=== PATIENT | female | born 1990 | race Caucasian/White ===

== ENCOUNTER 2023-10-13 16:14 | Outpatient (CLI) | payer BC, SELFPAY ==
--- NOTE | 2023-10-13 16:00 | CRLHL7_ITS ---
For Patients: As a result of the Century Cures Act, medical imaging exams and procedure reports are released immediately into your electronic medical record. You may view this report before your referring provider. If you have questions, please contact your health care provider. INDICATION: First trimester scan, establish dates. COMPARISON: None. TECHNIQUE: Real-time javier-scale imaging of the pelvis was performed. FINDINGS: Sonographic imaging demonstrates a single living intrauterine gestation. The embryo demonstrates a regular cardiac rate measuring 176 beats per minute. The embryo`s crown-rump length measurement of 2.6 cm corresponds to a gestational age of 9 weeks 3 days with a sonographic due date of 05/14/2024. There is a normal-appearing yolk sac. There are no gross abnormalities noted within the embryo at this early state of development. The gestational sac has a normal appearance. There is a 2.4 x 1.5 x 2.5 cm perigestational hemorrhage. The amount of fluid within the sac appears appropriate for gestational age. The cervix is closed. The myometrium appears normal. The ovaries are of normal size. Corpus luteal cyst right ovary. There are no suspicious fluid collections noted in the cul-de-sac. IMPRESSION: Single living intrauterine with sonographic gestational age 9 weeks 3 days and sonographic due date 05/14/2024. Inferior subchorionic hemorrhage measuring 2.4 x 1.5 x 2.5 cm. Dictated by Radhames Thapa MD @ 10/14/2023 10:17:12 AM (Electronically Signed)
== END 2023-10-13 16:15 | disposition home or self-care (01) ==
LOC: US 16:15
PROVIDERS: PCP Family Medicine; Visit Provider Registered Nurse
DX: Z34.91 Encounter for supervision of normal pregnancy, unspecified, first trimester (principal); O20.9 Hemorrhage in early pregnancy, unspecified; Z3A.09 9 weeks gestation of pregnancy
CPT/HCPCS: 76817; 86703; 86706; 86803; 86850; 86900; 86901; 87086; 87340; 87491; 87591

== ENCOUNTER 2023-10-13 17:34 | Outpatient (CLI) | payer BC, SELFPAY ==
[2023-10-13 21:45] LABS: Chlamydia DNA Amplified* NOT DETECTED (No Detected); GC DNA Amplified* NOT DETECTED (No Detected)
== END 2023-10-13 17:35 | disposition home or self-care (01) ==
PROVIDERS: PCP Family Medicine; Visit Provider Registered Nurse
DX: Z34.91 Encounter for supervision of normal pregnancy, unspecified, first trimester (principal); Z3A.09 9 weeks gestation of pregnancy
CPT/HCPCS: 86592; 86703; 86704; 86706; 86762; 86787; 86803; 86850; 86900; 86901; 87086; 87340; 87491; 87591

== ENCOUNTER 2024-01-06 13:56 | Outpatient (CLI) | payer BC, SELFPAY ==
--- OUTSIDE RECORDS SUMMARY | 2024-01-06 13:59 | XMS_ITS | Clinical Summary ---
Author Name Unknown Organization [place] Address [facility] [place] [address] Care Team Providers Care Apparel Pattern Maker Name Role Phone Clinic, [facility] [place] [facility] Pro vider Allergies No known active allergies Medications Medication Sig Dispensed Refills Start Date End Date Status Vit-Fe Fumarate-FA (PNV PLUS MULTIVITAMIN) 27-1 MG TABS per tablet Take 1 tablet by mouth daily 0 Active Active Problems Problem Noted Date Diagnosed Date (spontaneous vaginal delivery) 11/21/2019 Labor and delivery, indication for care 11/20/20 19 Indication for care in labor or delivery 019 Social History Tobacco Use Types Packs/Day Years Used Date Smoking Tobacco: Never Smokeless Tobacco: Never Alcohol Use Standard Drinks/Week Comments Never 0 (1 standard drink = 0.6 oz pur e alcohol) AUDIT-C Answer Date Recorded Q1: How often do you have a drink containing alc ohol? Never 11/20/2019 Average Number of Drinks Not on file 019 Frequency of Binge Drinking Not on file 10/31 [place] Depression Scale Answer Date Recorded [place] Depression Score 0 11/21/2019 Last EPDS Self Harm Result Not on file 11/21 Adolescent Education Answer Date Record ed Getting School Help Needed Not on file 09/06 Sex and Gender Information Value Date Recorded Sex Assigned at Not on file Gender Identity Not on file Sexual Orientation Not on file Last Filed Vital Signs Vital Sign Reading Time Taken Comments Blood Pressure 105/64 11/22/2019 9:00 AM DEALERSHIP GENERAL MANAGER Pulse - - Temperature 36.4 ??C (97.5 ??F) 11/22/2019 9:00 AM CS T Respiratory Rate 16 11/22/2019 9:00 AM DEALERSHIP GENERAL MANAGER Oxygen Saturation 97% 11/20/2019 8:45 PM DEALERSHIP GENERAL MANAGER Inhaled Oxygen Concentration - - Weight 104.3 kg (230 lb) 11/20/2019 9:33 AM DEALERSHIP GENERAL MANAGER Height 170.2 cm (5' 7) 11/20/2019 9:33 AM DEALERSHIP GENERAL MANAGER Body Mass Index 36.02 11/20/2019 9:33 AM DEALERSHIP GENERAL MANAGER Plan of Treatment Health Maintenance Due Date Last Done Comments ADVANCE CARE PLANNING 1989 ANNUAL REVIEW OF HM ORDERS 1989 HEPATITIS B IMMUNIZATION (1 of 3 - 3-dose series) 1989 YEARLY PREVENTIVE VISIT 1989 COVID-19 Vaccine (#1) 04/25/1990 HEPATITIS C SCREENING 2007 PAP 2010 DTAP/TDAP/TD IMMUNIZATION (1 - Tdap) 2014 INFLUENZA VACCINE (#1) 2023 PHQ-2 (once per calendar year) 2023 HIV SCREENING Completed 04/12/2019 HPV IMMUNIZATION Aged Out No longer e ligible based on patient's age to complete this topic IPV IMMUNIZATION Aged Out No longer e ligible based on patient's age to complete this topic MENINGITIS IMMUNIZATION Aged Out No l onger eligible based on patient's age to complete this topic Pneumococcal Vaccine: Pediat rics (0 to 5 Years) and At-Risk Patients (6 to 64 Years) Aged Out No longer eligi ble based on patient's age to complete this topic RSV MONOCLONAL ANTIBODY Aged Out No l onger eligible based on patient's age to complete this topic Care Teams Apparel Pattern Maker Relationship Specialty Start Date End Date Clinic, [facility] [id number] [place] [address] PCP - General 11/22/19
--- OUTSIDE RECORDS SUMMARY | 2024-01-06 13:59 | XMS_ITS | Encounter Summary ---
Author Name Unknown Organization [facility] Address [address], [place] [address] Care Team Providers Care Quality Assurance Intern Name Role Phone Riri Hand PA-C Primary Care Provider [phone] Encounter Details Date Type Department Care Team Description 03/03/2017 Correspondence [facility] [address] [place] [address] [address] [place] [address] Nicolas Jefferson MD [address] [place], [place] [id number] OCC MED TB SCREENING TOOL Social History Tobacco Use Types Packs/Day Years Used Date Smoking Tobacco: Never Smokeless Tobacco: Never Comments:non smoking environ ment Alcohol Use Standard Drinks/Week Comments Yes 0 (1 standard drink = 0.6 oz pur e alcohol) 2 to 3 drinks/week Sex and Gender Information Value Date Recorded Sex Assigned at Not on file Gender Identity Not on file Sexual Orientation Not on file documented as of this encounter Plan of Treatment Not on file documented as of this encounter Visit Diagnoses Not on filedocumented in this encounter Care Teams Quality Assurance Intern Relationship Specialty Start Date End Date Riri Hand PA-C [address] [place] [address] PCP - General Physician Weigh And Charge Worker 10/12/17 documented as of this encounter
--- OUTSIDE RECORDS SUMMARY | 2024-01-06 13:59 | XMS_ITS | Encounter Summary ---
Author Name Unknown Organization [facility] Address [address] [place] [address] Care Team Providers Care Radar Operator Name Role Phone Riri Hand PA-C Primary Care Provider [phone] Encounter Details Date Type Department Care Team Description 02/26/2017 Correspondence External to External, [place] [address] [facility] CNRT PPD [place] TEST Social History Tobacco Use Types Packs/Day Years [...] on filedocumented in this encounter Care Teams Radar Operator Relationship Specialty Start Date End Date Riri Hand PA-C [address] [place] [address] PCP - General Physician Gasoline Tester 10/12/17 documented as of this encounter
--- OUTSIDE RECORDS SUMMARY | 2024-01-06 13:59 | XMS_ITS | Encounter Summary ---
Author Name Unknown Organization [facility] Address [address], [place] [address] Care Team Providers Care House Wirer Name Role Phone Riri Hand PA-C Primary Care Provider + [phone] Encounter Details Date Type Department Care Team Description 03/03/2017 Correspondence [place] [facility] [place] [address] Nicolas Jefferson MD [address] [place] [address] SPIROMETRY PRE SCREEN QUESTIONNAIRE Social History Tobacco Use Types Packs/Day Years [...] on filedocumented in this encounter Care Teams House Wirer Relationship Specialty Start Date End Date Riri Hand PA-C [address] [place] [address] PCP - General Physician Executive Vice President And Chief Financial Officer 10/12/17 documented as of this encounter
--- OUTSIDE RECORDS SUMMARY | 2024-01-06 13:59 | XMS_ITS | Encounter Summary ---
Author Name Unknown Organization [facility] Address [address] [address] Care Team Providers Care Occasional Caregiver Name Role Phone Riri Hand PA-C Primary Care Provider [phone] Encounter Details Date Type Department Care Team Description 03/03/2017 Correspondence [place] [facility] [place] [address] Nicolas Jefferson MD [address] [place], [place] [id number] [place] DOC PRE PLACEMENT QUESTIONNAIRE Social History Tobacco Use Types Packs/Day [...] on filedocumented in this encounter Care Teams Occasional Caregiver Relationship Specialty Start Date End Date Riri Hand PA-C [address] [place] [address] PCP - General Physician Executive Producer Promos 10/12/17 documented as of this encounter
--- OUTSIDE RECORDS SUMMARY | 2024-01-06 13:59 | XMS_ITS | Encounter Summary ---
Author Name Unknown Organization [facility] Address [address], [place] [address] Care Team Providers Care Trestleman Name Role Phone Riri Hand PA-C Primary Care Provider + [phone] Encounter Details Date Type Department Care Team Description 03/03/2017 Correspondence [facility] [address] [place] [address] Nicolas Jefferson MD [address] [place], [place] [phone] [place] DEPT OF CORRECTIONS DRUG SCREEN RELEASE Social History Tobacco Use Types Packs/Day Years [...] on filedocumented in this encounter Care Teams Trestleman Relationship Specialty Start Date End Date Riri Hand PA-C [address] [place] [address] PCP - General Physician Bellmaker 10/12/17 documented as of this encounter
--- OUTSIDE RECORDS SUMMARY | 2024-01-06 13:59 | XMS_ITS | Referral Summary ---
Author Name Unknown Organization [place] Address [facility] [place] [address] Care Team Providers Care Manufacturing Shift Supervisor Name Role Phone Clinic, [facility] [place] [facility] Pro vider Allergies No known [...] of Binge Drinking Not on file 10/31 [place] Depression Scale Answer Date Recorded [place] Depression Score 0 11/21/2019 Last EPDS Self [...] Comments Blood Pressure 105/64 11/22/2019 9:00 AM CENTRIFUGAL STATION OPERATOR Pulse - - Temperature 36.4 ??C (97.5 ??F) 11/22/2019 9:00 AM CS T Respiratory Rate 16 11/22/2019 9:00 AM CENTRIFUGAL STATION OPERATOR Oxygen Saturation 97% 11/20/2019 8:45 PM CENTRIFUGAL STATION OPERATOR Inhaled Oxygen Concentration - - Weight 104.3 kg (230 lb) 11/20/2019 9:33 AM CENTRIFUGAL STATION OPERATOR Height 170.2 cm (5' 7) 11/20/2019 9:33 AM CENTRIFUGAL STATION OPERATOR Body Mass Index 36.02 11/20/2019 9:33 AM CENTRIFUGAL STATION OPERATOR Plan of Treatment Not on file Care Teams Manufacturing Shift Supervisor Relationship Specialty Start Date End Date Clinic, [facility] [address] [place] [address] PCP - General 11/22/19
--- OUTSIDE RECORDS SUMMARY | 2024-01-06 13:59 | XMS_ITS | Clinical Summary ---
Author Name Unknown Organization [facility] [place], [place] [address] Care Team Providers Care Soap Drier Tender Name Role Phone Pcp, No Primary Care Provider Unavailabl e Allergies No known active allergies Medications Medication Sig Dispensed Refills Start Date End Date Status ondansetron (ZOFRAN) 4 mg tablet Take 4 mg by mouth every 6 hours if needed. 0 04/08/2021 Active sertraline (ZOLOFT) 50 mg tablet Take 50 mg by mouth once daily. 0 03/28/2021 Active Active Problems Estimated Date of Delivery Comme nts Yes 08/24/2021 No known active problems Social History Tobacco Use Types Packs/Day Years Used Date Smoking Tobacco: Never Smokeless Tobacco: Never Estimated Date of Delivery Comme nts Yes 08/24/2021 Sex and Gender Information Value Date Recorded Sex Assigned at Not on file Gender Identity Not on file Sexual Orientation Not on file Obstetrics History Para Term AB IAB SAB Ectopic Multiple Livin g Live Births 1 Date Outcome GA Total Labor Labor/2nd/3rd Weight Sex Delivery Anes PTL Sweta A1 A5 Name Cl in Current Last Filed Vital Signs Vital Sign Reading Time Taken Comments Blood Pressure 122/61 07/11/2021 2:56 PM CDT Pulse 79 07/11/2021 2:56 PM CDT Temperature 36.7 ??C (98 ??F) 07/11/2021 2:56 PM CDT Respiratory Rate 14 07/11/2021 2:56 PM CDT Oxygen Saturation 98% 07/11/2021 2:56 PM CDT Inhaled Oxygen Concentration - - Weight - - Height - - Body Mass Index - - Plan of Treatment Health Maintenance Due Date Last Done Comments COVID-19 vaccine series (#1) 04/25/1990 Tdap 2000 Depression screening for age 12+ 2001 HIV for age 15-65 2004 BMI (ht and wt on same day) for age 18+ 2007 Hepatitis C screening for ag e 18-79 2007 Tetanus booster 2009 Influenza for age 9-49 07/31/2023 Pap test for age 21-65 01/22/2024 , 01/22/2021 Pneumococcal series for age 6-64 Aged Out No longer eligible b ased on patient's age to complete this topic Care Teams Soap Drier Tender Relationship Specialty Start Date End Date Pcp, No . PCP - General 07/11/21
--- OUTSIDE RECORDS SUMMARY | 2024-01-06 13:59 | XMS_ITS | Encounter Summary ---
Author Name Unknown Organization [facility] Address [address] [place] [address] Care Team Providers Care Rail Project Engineer Name Role Phone Riri Hand PA-C Primary Care Provider + [phone] Encounter Details Date Type Department Care Team Description 03/03/2017 Correspondence None No Primary/Referring, Phy INITIAL HEALTH AND WORK HISTORY QUESTIONNAIRE Social History Tobacco Use Types Packs/Day [...] on filedocumented in this encounter Care Teams Rail Project Engineer Relationship Specialty Start Date End Date Riri Hand PA-C [address] [place] [address] PCP - General Physician Police Chief Deputy 10/12/17 documented as of this encounter
--- OUTSIDE RECORDS SUMMARY | 2024-01-06 13:59 | XMS_ITS | Encounter Summary ---
Author Name Unknown Organization [facility] Address [address], [place] [address] Care Team Providers Care Hoop Punch And Coiler Operator Name Role Phone Riri Hand PA-C Primary Care Provider [phone] Encounter Details Date Type Department Care Team Description 03/03/2017 Correspondence [place] [facility] [place] [address] Nicolas Jefferson MD [address] [place], [place] [phone] [place] DOC PRE PLACEMENT QUESTIONNAIRE Social History Tobacco [...] on filedocumented in this encounter Care Teams Hoop Punch And Coiler Operator Relationship Specialty Start Date End Date Riri Hand PA-C [address] [place] [address] PCP - General Physician Building Components Designer 10/12/17 documented as of this encounter
--- OUTSIDE RECORDS SUMMARY | 2024-01-06 13:59 | XMS_ITS | Encounter Summary ---
Author Name Unknown Organization [facility] Address [address] [place] [address] Care Team Providers Care Patient Care Technician Instructor Name Role Phone Riri Hand PA-C Primary Care Provider + [phone] Encounter Details Date Type Department Care Team Description 03/03/2017 Correspondence None No Primary/Referring, Phy RESPIRATOR MEDICAL EVAL QUESTIONNAIRE Social History Tobacco Use Types Packs/Day [...] on filedocumented in this encounter Care Teams Patient Care Technician Instructor Relationship Specialty Start Date End Date Riri Hand PA-C [address] [place] [address] PCP - General Physician Fire Support Specialist 10/12/17 documented as of this encounter
--- OUTSIDE RECORDS SUMMARY | 2024-01-06 13:59 | XMS_ITS | Encounter Summary ---
Author Name Unknown Organization [facility] Address [address], [place] [address] Care Team Providers Care Latex Dipper Name Role Phone Riri Hand PA-C Primary Care Provider [phone] Encounter Details Date Type Department Care Team Description 03/03/2017 Correspondence [place] [facility] [place] [address] Nicolas Jefferson MD [address] [place] [address] [place] DOC RESPIRATOR CLEARANCE Social History Tobacco Use Types Packs/Day Years [...] on filedocumented in this encounter Care Teams Latex Dipper Relationship Specialty Start Date End Date Riri Hand PA-C [address] [place] [address] PCP - General Physician Printer Helper 10/12/17 documented as of this encounter
--- OUTSIDE RECORDS SUMMARY | 2024-01-06 13:59 | XMS_ITS | Clinical Summary ---
Author Name Unknown Organization [facility] Address [address] [facility] [place] [address] Care Team Providers Care Community Marketing Manager Name Role Phone Riri Hand PA-C Primary Care Provider + [phone] Source Comments You are receiving this document as you are listed as the primary care provider,follow-up provider, or the patient has been referred to you for consultation.This is in compliance with the Medicare and[facility] EHR Incentive Program,which states Providers who transition their patient to another setting of careor provider of care or refers their patient to another provider of care shouldprovide summary care record for each transition of care or referral. [facility] [employer] Allergies No known active allergies Medications Medication Sig Dispensed Refills Start Date End Date Status Vit-Fe Fumarate-FA (PNV PLUS MULTIVITAMIN) 27-1 MG TABS Take 1 Tablet by mouth. 0 Active Active Problems Problem Noted Date Diagnosed Date Class 1 obesity with body ma ss index (BMI) of 33.0 to 33.9 in adult 01/03/2020 Hx of head injury 10/19/2017 Other acne 11/19/2010 Overview: Acne Vulgaris Resolved Problems Problem Noted Date Diagnosed Date Resolved Date Rh negative, antepartum 04/15/2019 0202/2020 Obesity in 04/12/2019 020 Supervision of normal first , antepartum 04/12/2019 01/03/2020 Contraceptive management 11/20/2011 Closed skull fracture 07/17/20082016 Epidural hematoma 07/17/2008 10/19/2017 Immunizations Name Administration Dates Next Due 4vHPV (Gardasil) 12/02/2012,03/12/2012, 1 DTP 03/18/1995, 1,02/23/1990,1989 DTaP 03/18/1995, 1,02/23/1990,1989 Flu Vac (3+ yrs) 08/30/2014,12/02/2012, 1 Flu Vac Preserv Free (3+yrs) 11/20/2011 HepA Adult (19+ yrs) 10/25/2018,07/27/19 96,03/09/1996,1995 HepA Ped/Adol (1-18 yrs) 07/27/1996,03/09/1996,0 02/10/1996 HepB Ped/Adol (0-18 yrs) 11/10/2002,06/09/2002,0 05/12/2002 HepB, Unspecified Formulation 11/10/2002, 002,05/12/2002 Hib (ActHIB) 01/26/1991 IPV (Polio) 03/18/1995, 1,02/23/1990,1989 Influenza IIV4 (Quadrivalent ) 0.5mL (98530) 08/30/2019,10/19/2017,10/08/2015 MCV4 (Menactra) 07/21/2007 MMR 05/12/2002,01/26/1991 MPSV4 (Menomune) 07/21/2007 OPV, Trivalent (Orimune or tOPV) 995,06/27/1991,02/23/1990,1989 Rho(D) - IG, IM 08/30/2019 TDAP (ADACEL) 11/20/2011 Td 06/09/2002 Td, Preservative Free 06/09/2002 Tdap 08/30/2019 Family History Medical History Relation Name Comments Allergies Father No Known Problems Mother No Known Problems Maternal Grandmother Depression Paternal Grandfather Depression Paternal Grandmother Diabetes Paternal Grandmother High Cholesterol Paternal Grandmother Hypertension Paternal Grandmother Obesity Paternal Grandmother Anxiety Sister Cancer Negative Family History DVT/PE Negative Family History Heart Disease Negative Family History Relation Name Status Comments Father Alive Mother Alive Maternal Grandfather Alive Maternal Grandmother Alive Paternal Grandfather Alive Paternal Grandmother Alive Sister Alive Social History Tobacco Use Types Packs/Day Years Used Date Smoking Tobacco: Never Smokeless Tobacco: Never Comments:non smoking environ ment Alcohol Use Standard Drinks/Week Comments Not Currently 0 (1 standard drink = 0.6 oz pur e alcohol) 2 to 3 drinks/week Depression Answer Date Recor ded Last EPDS Total Score 7 06/16/2020 Last EPDS Self Harm Result 0-->never 06/16 Sex and Gender Information Value Date Recorded Sex Assigned at Not on file Gender Identity Not on file Sexual Orientation Not on file Last Filed Vital Signs Vital Sign Reading Time Taken Comments Blood Pressure 115/76 01/03/2020 2:06 PM DIRECTOR OF AUTOMATION Pulse 69 01/03/2020 2:06 PM DIRECTOR OF AUTOMATION Temperature 37.1 ??C (98.8 ??F) 05/03/2018 9:28 AM CD T Respiratory Rate 18 05/03/2018 9:28 AM CDT Oxygen Saturation 97% 05/03/2018 9:28 AM CDT Inhaled Oxygen Concentration - - Weight 97.1 kg (214 lb) 01/03/2020 2:06 PM DIRECTOR OF AUTOMATION Height 171.5 cm (5' 7.5) 01/03/2020 2:06 PM DIRECTOR OF AUTOMATION Body Mass Index 33.02 01/03/2020 2:06 PM DIRECTOR OF AUTOMATION Plan of Treatment Health Maintenance Due Date Last Done Comments Hep C Screening (Preventive Services) 1989 COVID-19 Vaccine (#1) 04/25/1990 Cervical Cancer Screening 10/19/20202016, 11/20/2011, 11/18/2010, Additional history exists Adult Preventive Visit 10/25/2020 10/25/2018, 2016 Influenza (#1) 2023 08/30/2019, 10/01, 10/08/2015, Additional history exists DTaP/Tdap/Td (7 - Tdap) 08/30/2029 08/30/20, 11/20/2011, 06/09/2002, Additional history exists Zoster/Shingles (1 of 2) 2039 Hib Completed 01/26/1991 IPV (Polio) Completed 03/18/1995, 02/28, 06/27/1991, Additional history exists HepB Completed 11/10/2002, 10/30, 06/09/2002, Additional history exists MCV4 Completed 07/21/2007, 07/21/2007 HPV Vaccine Completed 12/02/2012, 02/28, 11/20/2011 HepA Completed 10/25/2018, 07/01, 07/27/1996, Additional history exists HIV Screening (Preventive Services) Completed 04/12/2019, 10/19/2017 Pneumococcal Aged Out No longer eligi ble based on patient's age to complete this topic Medical Devices Implanted Type Area Automotive Upholsterer Device Identifier Shelf Expiration Date Model / Serial / Lot K-Wire Nikki Pt .[id number] - [id number] Implanted:Qty: 1 on 07/18/2008 at [facility] DEVICE Left: HAND [employer] [id number] / / Advance Directives Latest Code Status on File Code Status Date Activated Date Inactivated Comments Full Code 07/16/2008 3:34 AM 07/19/2008 4:37 PM Care Teams Community Marketing Manager Relationship Specialty Start Date End Date Riri Hand PA-C [address] [place] [address] PCP - General Physician Electrical Controls Assembler 10/12/17
--- NOTE | 2024-01-06 14:00 | CRLHL7_ITS ---
For Patients: As a result of the Century Cures Act, medical imaging exams and procedure reports are released immediately into your electronic medical record. You may view this report before your referring provider. If you have questions, please contact your health care provider. INDICATION: Evaluate anatomy. COMPARISON: 10/13/2023 TECHNIQUE: Real time javier scale imaging of the fetus was performed as well as color Doppler analysis of the umbilical vessels. FINDINGS: Sonographic imaging demonstrates a single living intrauterine gestation. Fetus demonstrates a regular cardiac rate of 142 beats per minute. Fetus has a variable position. The placenta lies anteriorly without evidence of placenta previa. Placental edge 7.1 cm from the internal cervical os. Amniotic fluid volume appears normal. Single deepest vertical pocket: 5.1 cm. The cervix is closed and measures 3.7 cm in length. The composite ultrasound gestational age is calculated at 22 weeks 3 days with an estimated sonographic due date of 05/08/2024. The estimated weight is 496 grams which lies at the greater than 97th %. The following biometric measurements were obtained: Biparietal diameter: 5.3 cm/22 weeks 1 day 88th% Head circumference: 20.2 cm/22 weeks 3 days 91st% Abdominal circumference: 17.6 cm/22 weeks 4 days 87th% Femur length: 3.8 cm/22 weeks 1 day 78th% The HC/AC ratio measures: 1.15 range (1.05-1.22) On anatomic survey, there is a normal appearance of the cerebral ventricles, cavum septi pellucidi, cisterna magna and cerebellum. The nose, lips, and facial profile appear normal. The cervical, thoracic and lumbar spine are well visualized and appear normal. Possible echogenic focus left ventricle. The left and right ventricular outflow tracts appear normal. The diaphragm and stomach appear normal. The kidneys and bladder also appear normal. There is a normal three-vessel cord and there is an eccentric cord insertion site. The four extremities appear normal. IMPRESSION: Sonographic gestational age 22 weeks 3 days and sonographic due date 05/08/2024. Sonographic age 10 days ahead of the clinical age. Estimated weight greater than 97th percentile. Abdominal circumference 87th percentile. Possible echogenic focus left ventricle. Remainder of the anatomic survey normal. Level 2 ultrasound recommended. Dictated by Radhames Thapa MD @ 01/07/2024 10:43:19 AM (Electronically Signed)
== END 2024-01-06 13:57 | disposition home or self-care (01) ==
LOC: US 13:57
PROVIDERS: PCP Family Medicine; Visit Provider Registered Nurse
DX: Z34.92 Encounter for supervision of normal pregnancy, unspecified, second trimester (principal); Z3A.22 22 weeks gestation of pregnancy
CPT/HCPCS: 76805

== ENCOUNTER 2024-03-01 18:57 | Outpatient (CLI) | payer BC, SELFPAY | END 2024-03-01 18:58 | disposition home or self-care (01) | PROVIDERS: PCP Family Medicine; Visit Provider Physician Assistant | DX: Z34.83 Encounter for supervision of other normal pregnancy, third trimester (principal); Z67.11 Type A blood, Rh negative | CPT/HCPCS: 86592; 86850; J2791 ==

== ENCOUNTER 2024-04-19 16:32 | Outpatient (CLI) | payer BC, SELFPAY ==
--- OUTSIDE RECORDS SUMMARY | 2024-04-19 16:34 | XMS_ITS | Referral Summary ---
Author Name Unknown Organization [facility] Address [address] [place] [address] Care Team Providers Care Supervisor Rubber Covering Name Role Phone Unavailable Primary Care Provider Unavailabl e Source Comments Patient records contain information from all sites at [facility]. For routine questions regarding patient records, call [phone] during business hours, M-F 8:00 AM - 5:00 PM Central Time. Record requests for emergency care only can be directed to [phone] at any time.[facility] Encounters Date Type Department Care Team Description 03/04/2024 6:50 AM CDT - 03/04/2024 11:59 PM CDT Hospital Encounter Department of Laboratory Medicine in [place], [place] [address] [place] [address] Charo Urbina, P.A.-C. Encounter For Supervision Of Normal Unspecified Trimester (HCC) Discharge Disposition: Home or Self Care from Last 3 Months Social History Tobacco Use Types Packs/Day Years Used Date Smoking Tobacco: Never Assessed Nutrition Answer Date Recorded Nutrition: EVOO Fat Source Unknown 03/03 Nutrition: Servings of Fruits/Vegetables per Day Not on file 03/03/2024 Dental Answer Date Recorded Dental: Regular Dentist Unknown 03/03/20 24 Sex and Gender Information Value Date Recorded Sex Assigned at Not on file Gender Identity Not on file Sexual Orientation Not on file Plan of Treatment Not on file Procedures Procedure Name Priority Date/Time Associated Diagnosis Comments GLUCOSE EVERARDO, 3 HR, S/P Routine 03/04/2024 7:13 AM CDT Encounter For Supervision Of Normal Unspecified Trimester (HCC) from Last 3 Months Results * Glucose Tolerance, 3 Hours (03/04/2024 7:13 AM CDT) Glucose Everardo, Baseline, P 83 Not Applicable mg/dL 03/04/2024 8:04 AM CDT [facility] Glucose Everardo, 1 hr, P 135 Not Applicable mg/dL 03/04/2024 9:02 AM CDT [facility] Glucose Everardo, 2 hr, P 137 Not Applicable mg/dL 03/04/2024 10:24 AM CDT [facility] Glucose Everardo, 3 hr, P 119 Not Applicable mg/dL 03/04/2024 11:56 AM CDT [facility] Blood (Blood, Venous) 03/04/2024 7:13 AM CDT 03/04/2024 7:16 AM CDT Narrative [facility] - 03/04/2024 11:56 AM CDT Specimen Information: Specimen ID: [id number] Specimen Type: Blood Specimen Collection Start Date: 03/04/2024 ??7:13 AM Specimen Received Date: 03/04/2024 ??7:16 AM Specimen ID: [id number] Specimen Type: Blood Specimen Collection Start Date: 03/04/2024 ??8:16 AM Specimen Received Date: 03/04/2024 ??8:17 AM Specimen ID: [id number] Specimen Type: Blood Specimen Collection Start Date: 03/04/2024 ??9:15 AM Specimen Received Date: 03/04/2024 ??9:26 AM Specimen ID: [id number] Specimen Type: Blood Specimen Collection Start Date: 03/04/2024 10:15 AM Specimen Received Date: 03/04/2024 10:38 AM February [facility] BLOOD NON A DD-ON [facility] [address] [place] [address], [facility] - [facility] [address] [place] [address] from Last 3 Months
--- OUTSIDE RECORDS SUMMARY | 2024-04-19 16:34 | XMS_ITS | Encounter Summary ---
Author Name Unknown Organization [facility] Address [address] [place] [address] Care Team Providers Care Brick Paver Name Role Phone Unavailable Primary Care Provider Unavailabl e Reason for Visit * Appointment Request (Routine) - Closed Specialty Diagnoses / Procedures Referred By Contac t Referred To Contact Laboratory Medicine Referral ID Status Reason Start Date Expiration Date Visits Re quested Visits Authorized [id number] Closed 03/03/2024 03/03/2025 1 1 Encounter Details Date Type Department Care Team (Latest Contact Info) Description 03/04/2024 6:50 AM CDT - 03/04/2024 11:59 PM CDT Hospital Encounter Department of Laboratory Medicine in [place], [place] [address] [place] [address] CarlitosFebruary L, P.A.-C. [address] [place] [address] Encounter For Supervision Of Normal Unspecified Trimester (HCC) Discharge Disposition: Home or Self Care Social History Tobacco Use Types Packs/Day Years [...] on file documented as of this encounter Procedures Procedure Name Priority Date/Time Associated Diagnosis Comments GLUCOSE EVERARDO, 3 HR, S/P Routine 03/04/2024 7:13 AM CDT Encounter For Supervision Of Normal Unspecified Trimester (HCC) documented in this encounter Results * Glucose Tolerance, 3 Hours (03/04/2024 [...] AM CDT 03/04/2024 7:16 AM CDT Narrative [facility] - 03/04/2024 11:56 AM CDT Specimen Information: Specimen ID: [id number] Specimen Type: Blood Specimen Collection Start Date: 03/04/2024 ??7:13 AM Specimen Received Date: 03/04/2024 ??7:16 AM Specimen ID: [id number] Specimen Type: Blood Specimen Collection Start Date: 03/04/2024 ??8:16 AM Specimen Received Date: 03/04/2024 ??8:17 AM Specimen ID: [id number] Specimen Type: Blood Specimen Collection Start Date: 03/04/2024 ??9:15 AM Specimen Received Date: 03/04/2024 ??9:26 AM Specimen ID: [id number] Specimen Type: Blood Specimen Collection Start Date: 03/04/2024 10:15 AM Specimen Received Date: 03/04/2024 10:38 AM February [facility] BLOOD NON A DD-ON [facility] [address] [place] [address], [facility] [address] [place] [address] documented in this encounter Visit Diagnoses Diagnosis Encounter For Supervision Of Normal Unspecified Trimester (HCC) documented in this encounter
--- OUTSIDE RECORDS SUMMARY | 2024-04-19 16:34 | XMS_ITS | Clinical Summary ---
Author Name Unknown Organization [facility] Address [address] [place] [address] Care Team Providers Care Sas Clinical Programmer Name Role Phone Unavailable Primary Care Provider Unavailabl e Source Comments Patient records contain information from all sites at [facility]. For routine questions regarding patient records, call [phone] during business hours, M-F 8:00 AM - 5:00 PM Central Time. Record requests for emergency care only can be directed to [phone] at any time.[facility] Encounters Date Type Department Care Team Description 03/04/2024 6:50 AM CDT - 03/04/2024 11:59 PM CDT Hospital Encounter Department of Laboratory Medicine in [place], [place] [address] [place] [address] Charo Urbina, P.A.-C. Encounter For Supervision Of Normal Unspecified Trimester (HCC) Discharge Disposition: Home or Self Care from Last 3 Months Social History Tobacco Use Types Packs/Day Years Used Date Smoking Tobacco: Never Assessed Nutrition Answer Date Recorded Nutrition: EVOO Fat Source Unknown 03/03 Nutrition: Servings of Fruits/Vegetables per Day Not on file 03/03/2024 Dental Answer Date Recorded Dental: Regular Dentist Unknown 03/03/20 Sex and Gender Information Value Date Recorded Sex Assigned at Not on file Gender Identity Not on file Sexual Orientation Not on file Plan of Treatment Health Maintenance Due Date Last Done Comments HIV Screening 1989 Hepatitis C Screening 1989 COVID-19 Vaccine (2022- season) 2023 Influenza Vaccine (#1) 2023 9, 10/19/2017, 10/08/2015, Additional history exists Depression Screening (Annual PHQ-2) 11/30/2023 Cervical Cancer Screening 01/22/2024 01/22/2021 DTaP,Tdap,and Td Vaccines (8 - Td or Tdap) 06/17/2031 06/17/2021, 08/30/2019, 11/20/2011, Additional history exists Hepatitis B Vaccines Completed 11/10/2002, 11/10/2002, 06/09/2002, Additional history exists HPV Vaccines Completed 12/02/2012, 02/28, 11/20/2011 Pneumococcal vaccine (0-64 years) Aged Out No longer eligible based on patient's age to complete this topic Procedures Procedure Name Priority Date/Time Associated Diagnosis [...] AM CDT 03/04/2024 7:16 AM CDT Narrative [facility] - 03/04/2024 11:56 AM CDT Specimen Information: Specimen ID: [id number] Specimen Type: Blood Specimen Collection Start Date: 03/04/2024 ??7:13 AM Specimen Received Date: 03/04/2024 ??7:16 AM Specimen ID: [id number] Specimen Type: Blood Specimen Collection Start Date: 03/04/2024 ??8:16 AM Specimen Received Date: 03/04/2024 ??8:17 AM Specimen ID: [id number] Specimen Type: Blood Specimen Collection Start Date: 03/04/2024 ??9:15 AM Specimen Received Date: 03/04/2024 ??9:26 AM Specimen ID: [id number] Specimen Type: Blood Specimen Collection Start Date: 03/04/2024 10:15 AM Specimen Received Date: 03/04/2024 10:38 AM February [facility] BLOOD NON A DD-ON [facility] [address] [place] [address], [place] [facility] [address] [place] [address] from Last 3 Months
--- OUTSIDE RECORDS SUMMARY | 2024-04-19 16:34 | XMS_ITS ---
Author Name Unknown Organization [facility] Address [address] [place] [address] Care Team Providers Care Inspector Integrated Circuits Name Role Phone Unavailable Unavailable Unavailable Surgery Details Not on file Complications Check Surgery Details section. Procedure Estimated Blood Loss Check Surgery Details section. Procedure Findings Check Surgery Details section. Procedure Specimens Taken Check Surgery Details section.
--- OUTSIDE RECORDS SUMMARY | 2024-04-19 16:35 | XMS_ITS | Encounter Summary ---
Author Name Unknown Organization [facility] Address [address] [place] [address] Care Team Providers Care Clinical Application Consultant Name Role Phone Riri Hand PA-C Primary Care Provider + [phone] Encounter Details Date Type Department Care Team (Late st Contact Info) Description 03/03/2017 Correspondence None No Primary/Referring, Phy [...] on filedocumented in this encounter Care Teams Clinical Application Consultant Relationship Specialty Start Date End Date Riri Hand PA-C [address] [place] [address] PCP - General Physician Quality Control Representative 10/12/17 documented as of this encounter
--- OUTSIDE RECORDS SUMMARY | 2024-04-19 16:35 | XMS_ITS | Encounter Summary ---
Author Name Unknown Organization [facility] Address [address], [place] [address] Care Team Providers Care Sleever Name Role Phone Riri Hand PA-C Primary Care Provider + [phone] Encounter Details Date Type Department Care Team (Latest Contact Info) Description 03/03/2017 Correspondence [facility] [address] [place] [address] Nicolas Jefferson MD [address] [place], [place] [phone] [place] DOC PRE PLACEMENT QUESTIONNAIRE Social History Tobacco [...] on filedocumented in this encounter Care Teams Sleever Relationship Specialty Start Date End Date Riri Hand PA-C [address] [place] [address] PCP - General Physician Spot Man 10/12/17 documented as of this encounter
--- OUTSIDE RECORDS SUMMARY | 2024-04-19 16:35 | XMS_ITS | Clinical Summary ---
Author Name Unknown Organization [facility] Address [place], [place] [address] Care Team Providers Care Director Of Rotc Name Role Phone Pcp, No Primary Care Provider Unavailabl e Allergies No known active allergies Medications Medication Sig Dispensed Refills Start Date End Date Status ondansetron (ZOFRAN) 4 mg tablet Take 4 mg by mouth every 6 hours if needed. 04/08/2021 Active sertraline (ZOLOFT) 50 mg tablet Take 50 mg by mouth once daily. 03/28/2021 Active Active Problems Estimated Date of [...] Health Maintenance Due Date Last Done Comments Tdap 2000 Depression screening for age 12+ 2001 HIV for age 15-65 2004 BMI (ht and wt on same day) for age 18+ 2007 Hepatitis C screening for ag e 18-79 2007 Tetanus booster 2009 COVID-19 vaccine series (2022- season) 2023 Pap test for age 21-65 01/22/2024 , 01/22/2021 Influenza for age 9-49 07/31/2024 Pneumococcal series for age 6-64 Aged Out No longer eligible b ased on patient's age to complete this topic Procedures Procedure Name Priority Date/Time Associated Diagnosis Comments SAS SQL DEVELOPER THIN PREP PAP SCREEN IMAGED Routine 01/22/2021 10:45 AM HEALTH PROMOTION OFFICER from Last 3 Months or Most Recently Relevant to Health Maintenance Results * SAS SQL DEVELOPER THIN PREP PAP SCREEN IMAGED (01/22/2021 10:45 AM HEALTH PROMOTION OFFICER) Case Report Gynecologic Cytology Report ? Case: [id number] ? Authorizing Provider: ??Macy Pack CNM ? Collected: ? 01/22/2021 1045 ? Ordering Location: ? [facility] ?Received: ?01/23/2021 0907 ? First Screen: ?Donnell Corral ? Specimen: ?SAS SQL DEVELOPER ThinPrep Vial Screening, Cervical/Vaginal ? 01/30/2021 9:13 AM [facility] [facility] INTERPRETATION/ RESULT NEGATIVE FOR INTRAEPITHELIAL LESION OR MALIGNANCY (NIL) (none) 01/30/2021 9:13 AM [facility] IMEN ADEQUACY Satisfactory for evaluation Endocervical component present 01/30/2021 9:13 AM [facility] HPV REQUEST HPV and PAP 01/30/2021 9:13 AM [facility] [facility] Menstrual Status 01/30/2021 9:13 AM [facility] Additional Information 01/30/2021 9:13 AM [facility] Comment: Interpreted at [facility] - [address], [place] [address] Automated Review Successful 01/30/2021 9:13 AM [facility] Comment:Specimen processed s uccessfully by automated civil estimator device, ThinPrep Imaging System, [employer] ANCILLARY TESTING SAS SQL DEVELOPER HPV Ordered, Please see separate report 01/30/2021 9:13 AM [facility] Note The pap test is a screening technique, not a diagnostic procedure. It is used primarily to screen for squamous cancers and precursor lesions. Published studies have shown that it is subject to both false negative and false positive results. The pap test should not be used as the sole means to diagnose or exclude pre-malignant and malignant lesions. 01/30/2021 9:13 AM [facility] [facility] Other (Cervical/Vagina l) 01/22/2021 10:45 AM HEALTH PROMOTION OFFICER 01/23/2021 9:07 AM HEALTH PROMOTION OFFICER Macy Pack CNM PATH[facility] [address] [place] [address], [place] from Last 3 Months or Most Recently Relevant to Health Maintenance Care Teams Director Of Rotc Relationship Specialty Start Date End Date Pcp, No . PCP - General 07/11/21
--- OUTSIDE RECORDS SUMMARY | 2024-04-19 16:35 | XMS_ITS | Encounter Summary ---
Author Name Unknown Organization [facility] Address [address] [place] [address] Care Team Providers Care Bead Filler Name Role Phone Riri Hand PA-C Primary Care Provider + [phone] Encounter Details Date Type Department Care Team (Late st Contact Info) Description 02/26/2017 Correspondence External to External, [place] [address] [facility] [place] TEST [...] on filedocumented in this encounter Care Teams Bead Filler Relationship Specialty Start Date End Date Riri Hand PA-C [address] [place] [address] PCP - General Physician Animal Handler 10/12/17 documented as of this encounter
--- OUTSIDE RECORDS SUMMARY | 2024-04-19 16:35 | XMS_ITS | Encounter Summary ---
Author Name Unknown Organization [facility] Address [address], [place] [address] Care Team Providers Care Electronic Warfare Specialist Name Role Phone Riri Hand PA-C Primary Care Provider + [phone] Encounter Details Date Type Department Care Team (Latest Contact Info) Description 03/03/2017 Correspondence [facility] [address] [place] [address] Nicolas Jefferson MD [address] [place], [place] [id number] [place] DOC PRE PLACEMENT QUESTIONNAIRE Social History [...] on filedocumented in this encounter Care Teams Electronic Warfare Specialist Relationship Specialty Start Date End Date Riri Hand PA-C [address] [place] [address] PCP - General Physician Ship Pilot Dispatcher 10/12/17 documented as of this encounter
--- OUTSIDE RECORDS SUMMARY | 2024-04-19 16:35 | XMS_ITS | Encounter Summary ---
Author Name Unknown Organization [place] Address [address] [place] [address] Care Team Providers Care Obgyn Specialist Name Role Phone Clinic, [facility] [place] [facility] Pro vider Reason for Visit * Reason Comments Genetic Counseling Abnormal ultrasound * Consultation (Routine: Next available opening) - Pending Review Specialty Diagnoses / Procedures Referred By Keanu t Referred To Contact Diagnoses related condition, antepartum Mindy Chavarria MD [facility] [address] [place] [address] Referral ID Status Reason Start Date Expiration Date V isits Requested Visits Authorized [id number] Pending Review 01/08/2024 01/07/2025 1 1 Encounter Details Date Type Department Care Team (Late st Contact Info) Description 01/11/2024 12:45 PM STERILIZATION TECH Office Visit [facility] [place] [address] [facility] [address] [place] [address] Mindy Chavarria MD [facility] [address] [place] [address] Tony Almonte MD [address] [place] [address] [address] [place] [address] Felipa Saldaña GC Maternal Medicine [address] [place] [address] [address] [place] [address] Abnormal ultrasound (Primary Dx); related condition, antepartum Social History Tobacco Use Types Packs/Day Years [...] of Binge Drinking Not on file 10/31 [place] Depression Scale Answer Date Recorded [place] Depression Score 0 11/21/2019 Last EPDS Self Harm Result Not on file 11/21 Adolescent Education Answer Date Record ed Getting School Help Needed Not on file 09/06 Estimated Date of Delivery Comme nts Yes 05/18/2024 Based on last me nstrual period of 08/12/2023 Sex and Gender Information Value Date Recorded Sex Assigned at Not on file Gender Identity Not on file Sexual Orientation Not on file documented as of this encounter Progress Notes * Felipa Saldaña, - 01/11/2024 12:45 PM CST [facility] [place] Genetic Counseling Consult Patient: Marbella Milton Date of : 1990 Date of Service: 01/11/24 Marbella was seen at the [facility] for genetic consultation. The indication for genetic counseling is family history concern and abnormal ultrasound at [facility]. The patient was accompanied to this visit by their partner, Murtaza. The session was conducted in [place]. IMPRESSION/ PLAN 1. Marbella had a blood draw for genetic screening earlier in this . Their non-invasive test result is still pending. 2. During today's [facility] visit, Marbella had a genetic counseling session only. Screening and diagnostic testing was discussed and declined. 3. Marbella had an ultrasound today. Please see the ultrasound report for further details. HISTORY /Parity: Marbella's history is significant for: Term 07/2021 Term 10/2019 hearing loss CURRENT Current Age: [age] year old Age at Delivery: 33 year old EDIE: 05/18/2024, by Last Menstrual Period Gestational Age: 21w5d This is a single gestation. We briefly reviewed the ultrasound finding from the outside scan of echogenic intracardiac focus, which refers to a small bright spot in the heart. This finding is generally not associated with heartdefects or other heart problems. Some studies have suggested that this ultrasound finding is thought to be seen with a higher frequency in pregnancies with a chromosome problem (particularly Down syndrome), as compared to pregnancies that do not have a chromosome problem. Because of this, it is thought that this ultrasound finding may increase the risk of a chromosome problem in a . We discussed common aneuploidy markers identified on level II ultrasounds. Aneuploidy means an abnormal number of chromosomes. These markers are used to adjust age-related risk for chromosome abnormalities. While markers are often seen in babies without a chromosome condition, they are seen slightly more often in babies with a condition. Therefore, each marker is associated with a different increase in risk but alone not diagnose a condition, such a Down syndrome. An EIF can be seen in 3-5% fetus without Down syndrome. However, in the second trimester ultrasoundabout 21-28% of fetuses with Down syndrome have an EIF. The likelihood ratio for this soft marker is up to 1.8. Thus, the current chance that the fetus has Down syndrome is up to 1 in 214 or 0.51%. MEDICAL HISTORY Marbella???s reported medical history is not expected to impact management or risks to fetaldevelopment. FAMILY HISTORY A three-generation pedigree was obtained today and is scanned under the bluebird bio tab in [employer]. The family history was reported by Marbella and their partner. The following significant findings were reported today: Marbella's son, Ke (4yrs), has hearing loss. Marbella gave verbal permission for us to look at her sonsrecords. 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 Mapped to this region are 13 genes including NLRP3, GCSAML, GCSAML-AS1, and 10 olfactory receptor genes. Although pathogenic variants within NLRP3 have been associated with a number of inherited inflammatory disorders and with autosomal dominant deafness, there is no published data to suggest that an extra copy of an intact copy of NLRP3 would have clinical manifestations. - per the lab report. Parental studies showed that Ke's father has this same copy number gain. They weretold the hearing loss is likely a fluke but could be due to a CMV infection. We reviewed that CMV is now on the screen. The father of the baby, Murtaza (34yrs) has a heart murmur he reports it is really faint. Murtaza has the same copy Number GAIN in1q44 as Ke Hauser's mother has a heart murmur Murtaza's half brother through his dad had surgery on his heart as a child. We discussed that congenital heart defects are common, occurring in 0.5 to 1.0% live births. Isolated congenital heart defects are usually multifactorial, meaning they are often caused by the combination of genetic and environmental factors. In general, the recurrence risk is likely increased for first and second degree relatives, however, for third degree relatives the risk is likely equal to general population risk. Otherwise, the reported family history is unremarkable for multiple miscarriages, stillbirths, defects, intellectual disabilities, known genetic conditions, and consanguinity. RISK ASSESSMENT FOR CHROMOSOME CONDITIONS We explained that the risk for chromosome abnormalities increases with maternal age. We discussed specific features of common chromosome abnormalities, including Down syndrome, trisomy 13, trisomy 18, and sex chromosome trisomies. At age 33 at midtrimester, the risk to have a baby with Down syndrome is 1 in 342. At age 33 at midtrimester, the risk to have a baby with any chromosome abnormality is 1 in 172. Marbella had genetic screening earlier in this . Their non-invasive test is pending RISK ASSESSMENT FOR INHERITED CONDITIONS We discussed that every has a chance to have an inherited single-gene condition, even when there is no family history of that condition. In fact, approximately 90% of couples at an increased reproductive risk for an inherited condition have no family history of that condition. The averageperson may be a carrier for 5-10 different genetic variants that can increase the chance for their pregnancies to have that condition. We discussed autosomal recessive conditions and X-linked conditions. Autosomal recessive conditions happen when a mutation has been inherited from the egg and spermand include conditions like cystic fibrosis, thalassemia, hearing loss, spinal muscular atrophy, and more. X-linked conditions happen when a mutation has been inherited from the egg and include conditions like fragile X syndrome. We reviewed that when both biological parents carry a harmful genetic change in a gene associated with autosomal recessive inheritance, each of their pregnancies has a 1 in 4 (25%) chance to be affected by that condition. With x- linked conditions, the specific risk generally depends on the chromosomal sex of the fetus, with XY individuals (generally male) being most severely affected. screening was reviewed. About [place] Screening The patient does NOT have a family history of known inherited conditions. This does NOT mean the patient and/or their partner is not a carrier of a condition. Approximately 90% of couples at an increased reproductive risk for an inherited condition have no family history of that condition. The patient has not had carrier screening previously. The patient declined the carrier screening options. They are aware the option will remain, and they can contact us if they would like to pursue screening.See below for the more detailed information we dicussed. We discussed that expanded carrier screening is designed to identify carrier status for conditions that are primarily childhood or adolescent onset. Expanded carrier screening does not evaluate for adult-onset conditions such as hereditary cancer syndromes, dementia/ Alzheimer's disease, or cardiovascular disease risk factors. Additionally, expanded carrier screening is not comprehensive for all known genetic diseases or inherited conditions. It will not intentionally screen for autosomal dominant conditions. This is a screening test, and residual carrier status risk figures will be provided to the patient after results become available. Carrier screening is not meant to diagnose the patient with a condition, and generally carriers are asymptomatic. However, certain genes may confer increased risks for various health concerns in carriers (including, but not limited to: VIRAL, DMD, FMR1). GENETIC TESTING OPTIONS Genetic testing during a includes screening and diagnostic procedures. Screening tests are non-invasive which means no risk to the and includes ultrasounds and blood work. The benefits and limitations of screening were reviewed. Screening tests provide a risk assessment (chance) specific to the for certain chromosome abnormalities but cannot definitively diagnose or exclude a chromosome abnormality. Follow-up genetic counseling and consideration of diagnostic testing is recommended with any abnormal screening result. Diagnostic testing during a is more certain and can test for more conditions. However, the tests do have a risk of miscarriage that requires careful consideration. These tests can detect chromosome ab normalities with greater than 99% certainty. Results can be compromised by maternal cell contamination or mosaicism and are limited by the resolution of current genetic testing technology. There is no screening or diagnostic test that detects all forms of defects or intellectual disability. We discussed the following screening options: Non-invasive testing (NIPT) Also called cell-free DNA screening because it detect chromosome fragments from the placenta in the person's blood. Can be done any time after 10 weeks gestation. Screens for trisomy 21, trisomy 18, trisomy 13, and sex chromosome aneuploidies. ACMG also recommends consideration of screening for 22q11.2 microdeletion syndrome. Does not screen for all known chromosomal conditions. Even with negative results, a residual risk for screened conditions remains. Cannot screen for open neural tube defects, maternal serum AFP after 15 weeks is recommended Carrier screening Risk assessment for certain autosomal recessive and x-linked conditions. These conditions are generally infantile- or childhood-onset conditions. Can be done any time during the or prior to . Can screen for over 500 different genetic conditions. Is not intended to diagnosis a condition in the carrier parent. Even with negative results, a residual risk for screened conditions remains. We discussed the following diagnostic options: Amniocentesis Invasive diagnostic procedure done after 15 weeks gestation The procedure collects a small sample of amniotic fluid for the purpose of chromosomal testing and/or other genetic testing Diagnostic result; more than 99% sensitivity for chromosome abnormalities Testing for AFP in the amniotic fluid can test for open neural tube defects It was a pleasure to be involved with [facility]s [facility]. [id number] time of the meeting was 30 minutes. FELIPA SALDAÑA MS, [facility] Genetic Counselor [facility] Maternal Medicine Office: [phone] [facility]: [phone] [facility] ILIZATION TECH documented in this encounter Plan of Treatment Not on file documented as of this encounter Visit Diagnoses Diagnosis Abnormal ultrasound- Primary Abnormal findings on screening related condition, antepartum documented in this encounter Care Teams Obgyn Specialist Relationship Specialty Start Date End Date [facility], [facility] [id number] [place] [id number] PCP - General 11/22/19 documented as of this encounter
--- OUTSIDE RECORDS SUMMARY | 2024-04-19 16:35 | XMS_ITS | Encounter Summary ---
Author Name Unknown Organization [facility] Address [address], [place] [address] Care Team Providers Care Cherry Sorter Name Role Phone Riri Hand PA-C Primary Care Provider + [phone] Encounter Details Date Type Department Care Team (Late st Contact Info) Description 03/03/2017 Correspondence [facility] [address] [place] [address] Nicolas Jefferson MD [address] [place], [place] [id number] ID DEPT OF CORRECTIONS DRUG SCREEN RELEASE Social [...] on filedocumented in this encounter Care Teams Cherry Sorter Relationship Specialty Start Date End Date Riri Hand PA-C [address] [place] [address] PCP - General Physician Employee Communications Intern 10/12/17 documented as of this encounter
--- OUTSIDE RECORDS SUMMARY | 2024-04-19 16:35 | XMS_ITS | Encounter Summary ---
Author Name Unknown Organization [facility] Address [address] [place] [address] Care Team Providers Care Reimbursement Rep Name Role Phone Riri Hand PA-C Primary Care Provider + [phone] Encounter Details Date Type Department Care Team [...] on filedocumented in this encounter Care Teams Reimbursement Rep Relationship Specialty Start Date End Date Riri Hand PA-C [address] [place] [address] PCP - General Physician [employer] 10/12/17 documented as of this encounter
--- OUTSIDE RECORDS SUMMARY | 2024-04-19 16:35 | XMS_ITS | Encounter Summary ---
Author Name Unknown Organization [place] Address [facility] [place] [address] Care Team Providers Care Radiator Repairer Name Role Phone [facility] Pro vider Encounter Details Date Type Department Care Team (Latest Contact Info) Description 01/11/2024 Travel Social History Tobacco Use Types Packs/Day Years [...] of Binge Drinking Not on file 10/31 [place] Depression Scale Answer Date Recorded [place] Depression Score 0 11/21/2019 Last EPDS Self [...] on filedocumented in this encounter Care Teams Radiator Repairer Relationship Specialty Start Date End Date [facility] [address] [place] [address] PCP - General 11/22/19 documented as of this encounter
--- OUTSIDE RECORDS SUMMARY | 2024-04-19 16:35 | XMS_ITS | Encounter Summary ---
Author Name Unknown Organization [facility] Address [facility] [place] [address] Care Team Providers Care Forder Operator Name Role Phone Clinic, [facility] [place] [facility] Pro vider Reason for Referral * Diagnostic Imaging Ultrasound (Routine) - Pending Review Specialty Diagnoses / Procedures Referred By Contac t Referred To Contact Radiology. Diagnoses related condition, antepartum Procedures [facility] US Comprehensive Single Mindy Padilla MD [facility] [address] [place] [address] Referral ID Status Reason Start Date Expiration Date V isits Requested Visits Authorized [id number] Pending Review 01/08/2024 01/07/2025 1 1 NALYTICS TEAM LEAD Reason for Visit * Diagnostic Imaging Ultrasound (Routine) - Pending Review Specialty Diagnoses / Procedures Referred By Contjessica dickerson Referred To Contact Radiology. Diagnoses related condition, antepartum Procedures [facility] US Comprehensive Mindy Carpenter MD [facility] [address] [place] [address] Referral ID Status Reason Start Date Expiration Date V isits Requested Visits Authorized [id number] Pending Review 01/08/2024 01/07/2025 1 1 Encounter Details Date Type Department Care Team (Latest Contact Info) Description 01/11/2024 12:34 PM PREANALYTICS TEAM LEAD - 01/11/2024 11:59 PM PREANALYTICS TEAM LEAD Hospital Encounter [facility] [place] [address] [place] [phone] Mindy Padilla MD [facility] [address] [place] [address] Tony Almonte MD [address] [place] [address] related condition, antepartum Discharge Disposition: Home or Self Care Social [...] of Binge Drinking Not on file 10/31 Denton Depression Scale Answer Date Recorded Denton Depression Score 0 11/21/2019 Last EPDS Self [...] on file documented as of this encounter Medications at Time of Discharge Medication Sig Dispensed Refills Start Date End Date Vit-Fe Fumarate-FA (PNV PLUS MULTIVITAMIN) 27-1 MG TABS per tablet Take 1 tablet by mouth daily documented as of this encounter Plan of Treatment Not on file documented as of this encounter Procedures Procedure Name Priority Date/Time Associated Diagnosis Comments [facility] US COMPREHENSIVE SINGLE Routine 01/11/2024 2:16 PM PREANALYTICS TEAM LEAD related condition, antepartum documented in this encounter Results * [facility] US Comprehensive Single (01/11/2024 2:16 PM PREANALYTICS TEAM LEAD) Anatomical Region Laterality Modality Ultrasound 01/11/2024 1:28 PM PREANALYTICS TEAM LEAD Impressions 01/11/2024 3:05 PM PREANALYTICS TEAM LEAD IMPRESSION ----- 1. Funes intrauterine at 21w 5d gestational age here for evaluation of anatomy. 2. No anomalies commonly detected by ultrasound or soft markers of aneuploidy were identified in the detailed anatomic survey within the limits of ultrasound. A bright area was noted in the heart, however, the area was not as bright as surrounding bone and thus does not meet criteria for characterization as an echogenic intracardiac focus. 3. Growth parameters and estimated weight were consistent with established dates. 4. The amniotic fluid volume appeared normal. 5. On transabdominal imaging the cervix appears long and closed. Narrative 01/11/2024 3:05 PM PREANALYTICS TEAM LEAD ?Comprehensive ----- Pat. Name: GURDEEP MILTON ? Study Date: ??01/11/2024 1:28pm Pat. NO: ??[id number] ?Referring ??: MINDY PADILLA Site: ??[facility] ? Textile Pin Worker: Luba Irving RDMS : ??1990 ?Age: ?? 33 ----- INDICATION ----- Echogenic Intracardiac Focus on outside ultrasound METHOD ----- Transabdominal ultrasound examination. View: Sufficient ----- Funes . Number of fetuses: 1 DATING ----- ? Date ?Details ?Gest. age ?EDIE LMP ?08/12/2023 ?Cycle: regular cycle ?21 w + 5 d ? 05/18/2024 Prior assessment ? 10/13/2023 ? GA: 9 w + 3 d ? 22 w + 2 d ? 05/14/2024 U/S ? 01/11/2024 ? based upon AC, BPD, Femur, HC ?23 w + 0 d ? 05/09/2024 Assigned dating ?Dating performed on 01/11/2024, based on the LMP ?21 w + 5 d ? 05/18/2024 GENERAL EVALUATION ----- Cardiac activity present. FHR 141 bpm. movements present. Presentation breech. Placenta anterior, no previa > 2 cm from internal os . Umbilical cord Cord vessels: 3 vessel cord. Insertion site: normal insertion. Amniotic fluid Amount of AF: normal. MVP 4.0 cm. BIOMETRY ----- Main Biometry: BPD ?55.4 ?mm ? 22w 6d ?Hadlock OFD ?73.5 ?mm ? 22w 4d ?Nicolaides HC ?205.8 ?mm ?22w 5d ?Hadlock Cerebellum tr ?25.4 ? mm ?23w 3d ?Nicolaides AC ?186.3 ?mm ?23w 3d ?89% ?Hadlock Femur ?40.2 ? mm ?23w 0d ?Hadlock Humerus ?37.5 ?mm ? 23w 1d ?Alesia Weight Calculation: EFW ? 568 ? g ? 97% ?Hadlock EFW (lb,oz) ? 1 lb 4 ?oz EFW [facility] ([id number]) Head / Face / Neck Biometry: Redevelopment Manager ? 4.1 ? mm CM ?6.2 ? mm Nasal bone ? 7.4 ? mm ANATOMY ----- The following structures appear normal: Head / Neck ? Cranium. Head size. Head shape. Lateral ventricles. Choroid plexus. Midline falx. Cavum septi pellucidi. Cerebellum. Cisterna magna. ? Parenchyma. Thalami. Vermis. ? Neck. Face ? Lips. Profile. Nose. Maxilla. Mandible. Orbits. Lens. Heart / Thorax ?4-chamber view. RVOT view. LVOT view. Situs. Aortic arch view. Bicaval view. Ductal arch view. Superior vena cava. Inferior vena cava. 3-vessel ? view. 8-xmdlbg-paamddr view. Cardiac position. Cardiac size. Cardiac rhythm. ? Right lung. Left lung. Diaphragm. Abdomen ? Abdominal wall. Cord insertion. Stomach. Kidneys. Bladder. Liver. Bowel. Genitals. Spine ?Cervical spine. Thoracic spine. Lumbar spine. Sacral spine. Extremities / Skeleton ?Right arm. Right hand. Left arm. Left hand. Right leg. Right foot. Left leg. Left foot. MATERNAL STRUCTURES ----- Cervix ?Visualized ? Appearance: Appears Closed ? Approach - Transabdominal: Cervical length 53.0 mm Right Ovary ?Not examined Left Ovary ?Not examined RECOMMENDATION ----- Thank-you for referring your patient for a comprehensive ultrasound. I discussed the findings on today's ultrasound with the patient. I reviewed the limitations of ultrasound both in detecting aneuploidy and structural abnormalities. Ultrasound can routinely detect 80-90% of structural abnormalities. She had cell free DNA drawn at her primary provider's office and results are not yet available. We discussed that today's ultrasound findings were not consistent with an echogenic intracardiac focus (EIF) as the bright area was not as bright as bone. She met with our genetic counselors prior to today's ultrasound to discuss implications of an echogenic intracardiac focus. We discussed that even if this finding did represent an EIF we would recommend the cell free DNA that she has already had drawn. If the results of that test result with low risk result, no further genetic evaluation is needed and this is considered a normal variant. We discussed that an EIF does not impact the function or structure of the heart and does not require follow up in the or after delivery. Further ultrasound studies as clinically indicated. Return to primary provider for continued care. If you have questions regarding today's evaluation or if we can be of further service, please contact the [facility]. anomalies may be present but not detected I spent a total of 15 minutes on the date of this encounter including preparing to see the patient (reviewing medical records/tests), counseling and discussing the plan of care, documenting the visit in the electronic medical record, and communicating with other health furnace caretaker and/or care coordination. Procedure Note Brenda Nielsen MD - 01/11/2024 Comprehensive ----- Pat. Name: GURDEEP MILTON Study Date: 01/11/2024 1:28pm Pat. NO: [id number] Referring MD: MINDY PADILLA Site: [facility] Textile Pin Worker: Luba Irving RDMS : 1990 Age: 33 ----- INDICATION ----- Echogenic Intracardiac Focus on outside ultrasound METHOD ----- Transabdominal ultrasound examination. View: Sufficient ----- Funes . Number of fetuses: 1 DATING ----- DateDetailsGest. age EDIE LMP 08/12/2023ycle: regular cycle21 w + 5 d 05/18/2024 Prior assessment 10/13/2023 GA: 9 w +3 d22 w + 2 d 05/14/2024 U/S 01/11/2024ased upon AC, BPD, Femur, HC23 w + 0 d 05/09/2024 Assigned dating Dating performed on 01/11/2024, based onthe LMP 21 w +5 d 05/18/2024 GENERAL EVALUATION ----- Cardiac activity present. FHR 141 bpm. movements present. Presentation breech. Placenta anterior, no previa > 2 cm from internal os . Umbilical cord Cord vessels: 3 vessel cord. Insertion site: normalinsertion. Amniotic fluid Amount of AF: normal. MVP 4.0 cm. BIOMETRY ----- Main Biometry: BPD 55.4 mm22w 6d Hadlock OFD 73.5 mm22w 4d Nicolaides HC 205.8 mm22w 5d Hadlock Cerebellum tr 25.4 mm23w 3d Nicolaides AC 186.3 mm23w 3d 89% Hadlock Femur 40.2 mm23w 0d Hadlock Humerus 37.5 mm23w 1d Alesia Weight Calculation: EFW 568 g97% Hadlock EFW (lb,oz) 1 lb 4 oz EFW by Hadlock ([id number]) Head / Face / Neck Biometry: Redevelopment Manager 4.1 mm CM 6.2 mm Nasal bone 7.4 mm ANATOMY ----- The following structures appear normal: Head / Neck Cranium. Head size. Head shape.Lateral ventricles. Choroid plexus. Midline falx. Cavum septi pellucidi.Cerebellum. Cisterna magna. Parenchyma. Thalami. Vermis. Neck. Face Lips. Profile. Nose. Maxilla.Mandible. Orbits. Lens. Heart / Thorax 4-chamber view. RVOT view. LVOT view.Situs. Aortic arch view. Bicaval view. Ductal arch view. Superior venacava. Inferior vena cava. 3-vessel view. 1-euoaos-uuflhow view.Cardiac position. Cardiac size. Cardiac rhythm. Right lung. Left lung.Diaphragm. Abdomen Abdominal wall. Cord insertion.Stomach. Kidneys. Bladder. Liver. Bowel. Genitals. Spine Cervical spine. Thoracic spine.Lumbar spine. Sacral spine. Extremities / Skeleton Right arm. Right hand. Left arm. Lefthand. Right leg. Right foot. Left leg. Left foot. MATERNAL STRUCTURES ----- Cervix Visualized Appearance: Appears Closed Approach - Transabdominal:Cervical length 53.0 mm Right Ovary Not examined Left Ovary Not examined RECOMMENDATION ----- Thank-you for referring your patient for a comprehensive ultrasound. I discussed the findings on today's ultrasound with the patient. Ireviewed the limitations of ultrasound both in detecting aneuploidy andstructural abnormalities. Ultrasound can routinely detect 80-90% of structural abnormalities. She had cell freeDNA drawn at her primary provider's office and results are not yetavailable. We discussed that today's ultrasound findings were not consistent with anechogenic intracardiac focus (EIF) as the bright area was not as bright asbone. She met with our genetic counselors prior to today's ultrasound to discuss implicationsof an echogenic intracardiac focus. We discussed that even if this findingdid represent an EIF we would recommend the cell free DNA that she has already had drawn. If theresults of that test result with low risk result, no further geneticevaluation is needed and this is considered a normal variant. We discussed that an EIF does not impact thefunction or structure of the heart and does not require follow up in thepregnancy or after delivery. Further ultrasound studies as clinically indicated. Return to primary provider for continued care. If you have questions regarding today's evaluation or if we can be offurther service, please contact the [facility]. anomalies may be present but not detected I spent a total of 15 minutes on the date of this encounter includingpreparing to see the patient (reviewing medical records/tests), counselingand discussing the plan of care, documenting the visit in the electronic medical record, andcommunicating with other health furnace caretaker and/or carecoordination. IMPRESSION ----- 1. Funes intrauterine at 21w 5d gestational age here forevaluation of anatomy. 2. No anomalies commonly detected by ultrasound or soft markers ofaneuploidy were identified in the detailed anatomic survey withinthe limits of ultrasound. A bright area was noted in the heart, however, the area wasnot as bright as surrounding bone and thus does not meet criteria forcharacterization as an echogenic intracardiac focus. 3. Growth parameters and estimated weight were consistent withestablished dates. 4. The amniotic fluid volume appeared normal. 5. On transabdominal imaging the cervix appears long and closed. Mindy Deon RAY MFM US ORDERABLE S documented in this encounter Visit Diagnoses Diagnosis related condition, antepartum documented in this encounter Care Teams Forder Operator Relationship Specialty Start Date End Date [facility], [address] [address] PCP - General 11/22/19 documented as of this encounter
--- OUTSIDE RECORDS SUMMARY | 2024-04-19 16:35 | XMS_ITS | Clinical Summary ---
Author Name Unknown Organization [facility] Address [address] [facility] [place] [address] Care Team Providers Care Brick Yard Hand Name Role Phone Riri Hand PA-C Primary Care Provider + [phone] Source Comments You are receiving this document as you are listed as the primary care provider,follow-up provider, or the patient has been referred to you for consultation.This is in compliance with the Medicare and[facility] EHR Incentive Program,which states Providers who transition their patient to another setting of careor provider of care or refers their patient to another provider of care shouldprovide summary care record for each transition of care or referral. [facility] Allergies No known active allergies Medications Medication Sig Dispensed Refills Start Date End Date Status Vit-Fe Fumarate-FA (PNV PLUS MULTIVITAMIN) 27-1 MG TABS Take 1 Tablet by mouth. Active Active Problems Problem Noted Date Diagnosed Date Class 1 obesity with body ma ss index (BMI) of 33.0 to 33.9 in adult 01/03/2020 Hx of head injury 10/19/2017 Other acne 11/19/2010 Overview: Acne Vulgaris Resolved Problems Problem Noted Date Diagnosed Date Resolved Date Rh negative, antepartum 04/15/201902/2020 Obesity in 04/12/2019 020 Supervision of normal [...] 03/18/1995, 1,02/23/1990,1989 Influenza IIV4 (Quadrivalent ) 0.5mL (23633) 08/30/2019,10/19/2017,10/08/2015 MCV4 (Menactra) 07/21/2007 MMR 05/12/2002,01/26/1991 MPSV4 [...] Comments Blood Pressure 115/76 01/03/2020 2:06 PM HOSPICE ENTRANCE ATTENDANT Pulse 69 01/03/2020 2:06 PM HOSPICE ENTRANCE ATTENDANT Temperature 37.1 ??C (98.8 ??F) 05/03/2018 9:28 AM CD T Respiratory Rate 18 05/03/2018 9:28 AM CDT Oxygen Saturation 97% 05/03/2018 9:28 AM CDT Inhaled Oxygen Concentration - - Weight 97.1 kg (214 lb) 01/03/2020 2:06 PM HOSPICE ENTRANCE ATTENDANT Height 171.5 cm (5' 7.5) 01/03/2020 2:06 PM HOSPICE ENTRANCE ATTENDANT Body Mass Index 33.02 01/03/2020 2:06 PM HOSPICE ENTRANCE ATTENDANT Plan of Treatment Health Maintenance Due Date Last Done Comments Hep C Screening (Preventive Services) 1989 Cervical Cancer Screening 10/19/20202016, 11/20/2011, 11/18/2010, Additional history exists Adult Preventive Visit 10/25/2020 10/25/2018, 2016 COVID-19 Vaccine ( season) 2023 Influenza (Season Ended) 2024 019, 10/19/2017, 10/08/2015, Additional history exists DTaP/Tdap/Td (7 - Tdap) 08/30/2029 08/30/20 19, 11/20/2011, 06/09/2002, Additional history exists Zoster/Shingles (1 [...] this topic Medical Devices Implanted Type Area Director Of Home Care Hospice Device Identifier Shelf Expiration Date Model / Serial / Lot K-Wire Nikki Pt .[id number] - [id number] Implanted:Qty: 1 on 07/18/2008 at [facility] DEVICE Left: HAND [employer] [id number] / / Procedures Procedure Name Priority Date/Time Associated Diagnosis Comments HIV 1/2 AG/AB 4TH GEN Routine 04/12/2019 12:04 PM CDT Screening examination for venereal disease ANATOMICAL PATH LIQUID BASED Routine 10/19/2017 12:20 PM HOSPICE ENTRANCE ATTENDANT from Last 3 Months or Most Recently Relevant to Health Maintenance Results * HIV 1/2 Ag/Ab 4th Generation (04/12/2019 12:04 PM CDT) HIV 1/2 Antigen/Antib filiberto (4th generation) Negative (Non Reactive) Negative (Non Reactive) 04/12/2019 4:29 PM CDT [facility] Comment:HIV-1 p24 Antigen an d HIV-1/HIV-2 Antibody not detected Blood Venipuncture / Unknown 04/12/2019 12:04 PM CDT 04/12/2019 12:04 PM CDT Norma Patten APRN, JOO LAB_1 [facility] [address] [place], [place] [address] * Pap Smear (10/19/2017 12:20 PM HOSPICE ENTRANCE ATTENDANT) 10/19/2017 12:2 0 PM HOSPICE ENTRANCE ATTENDANT Narrative [facility] - 10/21/2017 6:40 AM HOSPICE ENTRANCE ATTENDANT FINAL GYNECOLOGICAL CYTOLOGY REPORT Pathology #: [id number] ?Date Obtained: 10/19/2017 ? Date Received: 10/20/2017 INTERPRETATION/RESULTS: Negative for Intraepithelial Lesion or Malignancy. SPECIMEN ADEQUACY: Satisfactory for Evaluation. ??Endocervical cells/transformation zone component present. Verified on 10/21/2017 ??by THAIS FLETCHER(ASCP) (electronic signature) CLINICAL NOTES: ?Abnormal bleeding: No, LMP: 09/28/17, Menstrual status: None ?Apply, Current form of therapy: Hormone Therapy LIQUID BASED PAP SMEAR SPECIMEN TYPE: ?ROUTINE CERVICAL PAP TEST PLEASE NOTE: The pap smear is a screening test designed to aid in the detection of cervical cancer and its precursor lesions. It is not a diagnostic procedure and should not be used as the sole means of detecting cervical cancer. Both false-positive and false-negative reports may occur. Performed at [address] [address] Riri Hand PA-C LAB_1 [facility] [address] [place] [phone] from Last 3 Months or Most Recently Relevant to Health Maintenance Advance Directives * Full Code (Latest Code Status on File) Date Activated Date Inactivated Comments 07/16/2008 3:34 AM 07/19/2008 4:37 PM Care Teams Brick Yard Hand Relationship Specialty Start Date End Date Riri Hand PA-C [address] [place] [address] PCP - General Physician Dock Superintendent 10/12/17
--- OUTSIDE RECORDS SUMMARY | 2024-04-19 16:35 | XMS_ITS | Encounter Summary ---
Author Name Unknown Organization [facility] Address [address], [place] [address] Care Team Providers Care Optomechanical Engineer Name Role Phone Riri Hand PA-C Primary Care Provider + [phone] Encounter Details Date Type Department Care Team ([facility] st Contact Info) Description 03/03/2017 Correspondence [facility] [address] [place] [address] Nicolas Jefferson MD [address] [place], [place] [phone] [place] DOC RESPIRATOR CLEARANCE Social History Tobacco Use [...] on filedocumented in this encounter Care Teams Optomechanical Engineer Relationship Specialty Start Date End Date Riri Hand PA-C [address] [place] [address] PCP - General Physician Nicking Machine Operator 10/12/17 documented as of this encounter
--- OUTSIDE RECORDS SUMMARY | 2024-04-19 16:35 | XMS_ITS | Encounter Summary ---
Author Name Unknown Organization [facility] Address [address] [address] Care Team Providers Care Chemistry Technical Officer Name Role Phone Riri Hand PA-C Primary Care Provider + [phone] Encounter Details Date Type Department Care Team ([facility] st Contact Info) Description 03/03/2017 Correspondence [facility] [address] [place] [address] Nicolas Jefferson MD [address] [place], [place] [phone] OCC MED TB SCREENING TOOL Social History [...] on filedocumented in this encounter Care Teams Chemistry Technical Officer Relationship Specialty Start Date End Date Riri Hand PA-C [address] [place] [address] PCP - General Physician Lead Ramp Service Man 10/12/17 documented as of this encounter
--- OUTSIDE RECORDS SUMMARY | 2024-04-19 16:35 | XMS_ITS | Encounter Summary ---
Author Name Unknown Organization [facility] Address [address] [address] Care Team Providers Care Photonic Laboratory Technician Name Role Phone Riri Hand PA-C Primary Care Provider + [phone] Encounter Details Date Type Department Care Team (Latest Contact Info) Description 03/03/2017 Correspondence [facility] [address] [place] [address] Nicolas Jefferson MD [address] [place], [place] [phone] SPIROMETRY PRE SCREEN QUESTIONNAIRE Social History Tobacco [...] on filedocumented in this encounter Care Teams Photonic Laboratory Technician Relationship Specialty Start Date End Date Riri Hand PA-C [address] [place] [address] PCP - General Physician Radial Drill Press Operator 10/12/17 documented as of this encounter
--- OUTSIDE RECORDS SUMMARY | 2024-04-19 16:35 | XMS_ITS | Referral Summary ---
Author Name Unknown Organization [facility] Address [facility] [place] [address] Care Team Providers Care Pet Sitter Name Role Phone Clinic, Leslie [facility] Primary Care Pro vider Allergies No known active allergies Medications Medication Sig Dispensed Refills Start Date End Date Status Vit-Fe Fumarate-FA (PNV PLUS MULTIVITAMIN) 27-1 MG TABS per tablet Take 1 tablet by mouth daily Active Active Problems Problem Noted Date Diagnosed Date (spontaneous vaginal delivery) 11/21/2019 Labor and delivery, indication for care 11/20/20 Indication for care in labor or delivery 019 Estimated Date of Delivery Comme nts Yes 05/18/2024 Based on last me nstrual period of 08/12/2023 Social History Tobacco Use Types Packs/Day Years [...] of Binge Drinking Not on file 10/31 Critz Depression Scale Answer Date Recorded Critz Depression Score 0 11/21/2019 Last EPDS Self [...] Comments Blood Pressure 105/64 11/22/2019 9:00 AM HAIR SPRING CUTTER Pulse - - Temperature 36.4 ??C (97.5 ??F) 11/22/2019 9:00 AM CS T Respiratory Rate 16 11/22/2019 9:00 AM HAIR SPRING CUTTER Oxygen Saturation 97% 11/20/2019 8:45 PM HAIR SPRING CUTTER Inhaled Oxygen Concentration - - Weight 104.3 kg (230 lb) 11/20/2019 9:33 AM HAIR SPRING CUTTER Height 170.2 cm (5' 7) 11/20/2019 9:33 AM HAIR SPRING CUTTER Body Mass Index 36.02 11/20/2019 9:33 AM HAIR SPRING CUTTER Plan of Treatment Not on file Procedures Procedure Name Priority Date/Time Associated Diagnosis Comments GROUP B STREP PCR Routine 10/25/2019 HIV ANTIGEN ANTIBODY COMBO Routine 04/12/2019 from Last 3 Months or Most Recently Relevant to Health Maintenance Results * Group B strep PCR (10/25/2019) Group B Strep PCR negative Patient Reported LAB - MICRO GENERAL ORDERABLES * HIV Antigen Antibody Combo (04/12/2019) HIV Antigen Antibody Combo negative Blood specimen (specimen) Patient Reported LAB - BLOOD ORDERABL ES from Last 3 Months or Most Recently Relevant to Health Maintenance Care Teams Pet Sitter Relationship Specialty Start Date End Date [facility], [facility] [address] [place] [address] PCP - General 11/22/19
--- OUTSIDE RECORDS SUMMARY | 2024-04-19 16:35 | XMS_ITS | Encounter Summary ---
Author Name Unknown Organization [place] Address [facility] [place] [address] Care Team Providers Care Education Paraprofessional Name Role Phone Clinic, Leslie Narvaez Kenneth Primary Care Pro vider Reason for Visit * Reason Comments Ultrasound L2- EIF on anatomy s can Genetic Counseling GC- EIF on anatomy s can Encounter Details Date Type Department Care Team (Late st Contact Info) Description 01/11/2024 2:00 PM METAL FURNITURE REPAIRER Office Visit [facility] [place] [address] [place] [address] Mindy Chavarria MD [facility] [address] [place] [address] Tony Almonte MD [address] [place] [address] [address] [place], [place] [id number] Brenda Nielsen MD [address] [place], [place] [address]E [address] [place], [place] [id number] Suspected anomaly not found (Primary Dx); BMI 31.0-31.9,adult Social History Tobacco Use Types Packs/Day Years [...] of Binge Drinking Not on file 10/31 [place] Depression Scale Answer Date Recorded Adrian Depression Score 0 11/21/2019 Last EPDS Self [...] as of this encounter Progress Notes * Brenda Nielsen MD - 01/11/2024 2:00 PM CST Please see Imaging tab under Chart Review for details of today's visit. Brenda Nielsen L FURNITURE REPAIRER documented in this encounter Nursing Notes * Lizeth Soliz RN - 01/11/2024 2:00 PM CST Patient reports positive movement, no pain, no contractions, leaking of fluid, or bleeding. SBAR given to WEI LUNA, see their note in Epic. L FURNITURE REPAIRER documented in this encounter Plan of Treatment Not on file documented as of this encounter Visit Diagnoses Diagnosis Suspected anomaly not found- Primary BMI 31.0-31.9,adult Body Mass Index 31.0-31.9, adult documented in this encounter Care Teams Education Paraprofessional Relationship Specialty Start Date End Date [facility], [facility] [address] [place] [address] PCP - General 11/22/19 documented as of this encounter
--- OUTSIDE RECORDS SUMMARY | 2024-04-19 16:35 | XMS_ITS | Clinical Summary ---
Author Name Unknown Organization [place] Address [facility] [address] Care Team Providers Care Furniture Finisher Helper Name Role Phone Clinic, Leslie Amezquita Primary [...] of Binge Drinking Not on file 10/31 [place] Depression Scale Answer Date Recorded [place] Depression Score 0 11/21/2019 Last EPDS Self [...] Comments Blood Pressure 105/64 11/22/2019 9:00 AM ATMOSPHERIC CHEMIST Pulse - - Temperature 36.4 ??C (97.5 ??F) 11/22/2019 9:00 AM CS T Respiratory Rate 16 11/22/2019 9:00 AM ATMOSPHERIC CHEMIST Oxygen Saturation 97% 11/20/2019 8:45 PM ATMOSPHERIC CHEMIST Inhaled Oxygen Concentration - - Weight 104.3 kg (230 lb) 11/20/2019 9:33 AM ATMOSPHERIC CHEMIST Height 170.2 cm (5' 7) 11/20/2019 9:33 AM ATMOSPHERIC CHEMIST Body Mass Index 36.02 11/20/2019 9:33 AM ATMOSPHERIC CHEMIST Plan of Treatment Health Maintenance Due Date Last Done Comments ADVANCE CARE PLANNING 1989 ANNUAL REVIEW OF HM ORDERS 1989 HEPATITIS C SCREENING 2007 PAP 2010 YEARLY PREVENTIVE VISIT 10/25/2019 10/25/2018, 10/19 COVID-19 Vaccine ( season) 2023 MATERNAL SCREENING DISCUSSION 10/21/2023 PHQ-2 (once per calendar year) 2023 OBGCT (OB) 01/27/2024 GROUP B STREP SCREENING 04/20/2024 10/25/2019 INFLUENZA VACCINE (Season Ended) 2024 08/30/2019, 10/19/2017, 10/08/2015, Additional history exists DTAP/TDAP/TD IMMUNIZATION (8 - Td or Tdap) 06/17/2031 06/17/2021, 08/30/2019, 11/20/2011, Additional history exists IPV IMMUNIZATION Completed 03/18/1995, , 06/27/1991, Additional history exists HEPATITIS B IMMUNIZATION Completed 002, 11/10/2002, 06/09/2002, Additional history exists MENINGITIS IMMUNIZATION Aged Out 07/21/2007, 07/21 No longer eligible based on patient's age to complete this topic HPV IMMUNIZATION Completed 12/02/2012, , 11/20/2011 HIV SCREENING Completed 04/12/2019 Pneumococcal Vaccine: Pediatrics (0 to 5 Years) and At-Risk Patients (6 to 64 Years) Aged Out No longer eligible based on patient's age to complete this topic RSV MONOCLONAL ANTIBODY Aged Out No l onger eligible based on patient's age to complete this topic RSV VACCINE ( & 60+) (No Doses Required) Completed Procedures Procedure Name Priority Date/Time Associated Diagnosis [...] Recently Relevant to Health Maintenance Care Teams Furniture Finisher Helper Relationship Specialty Start Date End Date Clinic, [facility] [address] [place] [address] PCP - General 11/22/19
[2024-04-20 22:17] LABS: Strep B DNA Probe Negative (Negative)
[2024-04-21 00:49] LABS: Strep B Susceptibility Needed? No
== END 2024-04-19 16:33 | disposition home or self-care (01) ==
LOC: NFLDREF 16:33
PROVIDERS: PCP Family Medicine; Visit Provider Advanced Practice Midwife
DX: Z34.93 Encounter for supervision of normal pregnancy, unspecified, third trimester (principal); Z3A.35 35 weeks gestation of pregnancy
CPT/HCPCS: 87081; 87653

== ENCOUNTER 2024-05-16 07:14 | Inpatient (IN) | payer BC, SELFPAY ==
[2024-05-16] VITALS (43 sets, daily range): BP systolic 105–160; BP diastolic 61–97; PULSE 67–111; RESP 16; TEMP 36.4–36.8; O2SAT 91–100; BMI 36.9
--- OUTSIDE RECORDS SUMMARY | 2024-05-16 07:16 | XMS_ITS | Encounter Summary ---
Author Organization [place] Address [address] [address] Care Team Providers Care Record Cutter Name Role Phone Riri Hand PA-C Primary Care Provider + [phone] Encounter Details Date Type Department Care Team (Late st Contact Info) Description 03/03/2017 Correspondence [facility] [address] [place] [address] Nicolas Jefferson MD [address] [place], [place] [id number] OCC MED TB SCREENING TOOL Social History [...] on filedocumented in this encounter Care Teams Record Cutter Relationship Specialty Start Date End Date Riri Hand PA-C [address] [place] [address] PCP - General Physician Cylinder Dyer 10/12/17 documented as of this encounter
--- OUTSIDE RECORDS SUMMARY | 2024-05-16 07:16 | XMS_ITS | Clinical Summary ---
Author Organization [facility] Address [address] [place] [address] Care Team Providers Care Senior Cost Analyst Name Role Phone Unavailable Primary Care Provider Unavailabl e Source Comments Patient records contain information from all sites at [facility]. For routine questions regarding patient records, call [phone] during business hours, M-F 8:00 AM - 5:00 PM Central Time. Record requests for emergency care only can be directed to [phone] at any time.[facility] Encounters Date Type Department Care Team Description 03/04/2024 6:50 AM CDT - 03/04/2024 11:59 PM CDT Hospital Encounter Department of Laboratory Medicine in [place], [place] [address] [place] [address] Charo Urbina, P.A.-CJacquie Encounter For Supervision Of Normal Unspecified Trimester [...] AM CDT 03/04/2024 7:[address] [facility] - 03/04/2024 11:56 AM CDT Specimen Information: Specimen ID: [id number] Specimen Type: Blood Specimen Collection Start Date: 03/04/2024 ??7:13 AM Specimen Received Date: 03/04/2024 ??7:16 AM Specimen ID: [id number] Specimen Type: Blood Specimen Collection Start Date: 03/04/2024 ??8:16 AM Specimen Received Date: 03/04/2024 ??8:17 AM Specimen ID: [id number] Specimen Type: Blood Specimen Collection Start Date: 03/04/2024 ??9:15 AM Specimen Received Date: 03/04/2024 ??9:26 AM Specimen ID: [id number] Specimen Type: Blood Specimen Collection Start Date: 03/04/2024 10:15 AM Specimen Received Date: 03/04/2024 10:38 AM February [facility] BLOOD NON A DD-ON [facility] [address] [place] [address], [place] [facility] [address] [place] [address] from Last 3 Months
--- OUTSIDE RECORDS SUMMARY | 2024-05-16 07:16 | XMS_ITS | Referral Summary ---
Author Organization [facility] Address [address] [place] [address] Care Team Providers Care Medical Economics Consultant Name Role Phone Unavailable Primary Care Provider Unavailabl e Source Comments Patient records contain information from all sites at [facility]. For routine questions regarding patient records, call [phone] during business hours, M-F 8:00 AM - 5:00 PM Central Time. Record requests for emergency care only can be directed to [phone] at any time.[facility] Encounters Date Type Department Care Team Description 03/04/2024 6:50 AM CDT - 03/04/2024 11:59 PM CDT Hospital Encounter Department of Laboratory Medicine in [place], [place] [address] [place] [address] Charo Urbina, P.A.-Dinora. Encounter For Supervision Of Normal Unspecified Trimester [...] AM CDT 03/04/2024 7:16 AM CDT Narrative [facility] - 03/04/2024 11:56 AM CDT Specimen Information: Specimen ID: [id number] Specimen Type: Blood Specimen Collection Start Date: 03/04/2024 ??7:13 AM Specimen Received Date: 03/04/2024 ??7:16 AM Specimen ID: [id number] Specimen Type: Blood Specimen Collection Start Date: 03/04/2024 ??8:16 AM Specimen Received Date: 03/04/2024 ??8:17 AM Specimen ID: [id number] Specimen Type: Blood Specimen Collection Start Date: 03/04/2024 ??9:15 AM Specimen Received Date: 03/04/2024 ??9:26 AM Specimen ID: [id number] Specimen Type: Blood Specimen Collection Start Date: 03/04/2024 10:15 AM Specimen Received Date: 03/04/2024 10:38 AM February Carl[facility] Shell LAB BLOOD NON A DD-ON [facility] [address] [place] [address], [facility] - [facility] [place] [address] [place] [address] from Last 3 Months
--- OUTSIDE RECORDS SUMMARY | 2024-05-16 07:16 | XMS_ITS | Encounter Summary ---
Author Organization [facility] Address [address] [place] [address] Care Team Providers Care Business Enterprise Officer Name Role Phone Unavailable Primary Care Provider Unavailabl e Reason for Visit * Appointment Request (Routine) - Closed Specialty Diagnoses / Procedures Referred By Contac t Referred To Contact Laboratory Medicine Referral ID Status Reason Start Date Expiration Date Visits Re quested Visits Authorized [id number] Closed 03/03/2024 03/03/2025 1 1 Encounter Details Date Type Department Care Team (Latest Contact Info) Description 03/04/2024 6:50 AM CDT - 03/04/2024 11:59 PM CDT Hospital Encounter Department of Laboratory Medicine in [place], [place] [address] [place] [address] Carlitos February Maycol, P.A.-C. [address] [place] [address] Encounter For Supervision Of Normal Unspecified [...] 3 Hours (03/04/2024 7:13 AM CDT) Glucose [place], Baseline, P 83 Not Applicable mg/dL 03/04/2024 [...] CDT 03/04/2024 7:[address] [facility] - 03/04/2024 11:56 AM CDT Specimen Information: Specimen ID: [id number] Specimen Type: Blood Specimen Collection Start Date: 03/04/2024 ??7:13 AM Specimen Received Date: 03/04/2024 ??7:16 AM Specimen ID: [id number] Specimen Type: Blood Specimen Collection Start Date: 03/04/2024 ??8:16 AM Specimen Received Date: 03/04/2024 ??8:17 AM Specimen ID: [id number] Specimen Type: Blood Specimen Collection Start Date: 03/04/2024 ??9:15 AM Specimen Received Date: 03/04/2024 ??9:26 AM Specimen ID: [id number] Specimen Type: Blood Specimen Collection Start Date: 03/04/2024 10:15 AM Specimen Received Date: 03/04/2024 10:38 AM February Carl[facility] Shell LAB BLOOD NON A DD-ON [facility] [address] [place] [address], [place] [facility] - [facility] [address] [place] [address] documented in this encounter Visit Diagnoses Diagnosis Encounter For Supervision Of Normal Unspecified Trimester (HCC) documented in this encounter
--- OUTSIDE RECORDS SUMMARY | 2024-05-16 07:16 | XMS_ITS ---
Author Organization [facility] Address [address] [place] [address] Care Team Providers Care Energy Attorney Name Role Phone Unavailable Unavailable Unavailable Surgery Details Not on file Complications Check Surgery Details section. Procedure Estimated Blood Loss Check Surgery Details section. Procedure Findings Check Surgery Details section. Procedure Specimens Taken Check Surgery Details section.
--- OUTSIDE RECORDS SUMMARY | 2024-05-16 07:16 | XMS_ITS | Clinical Summary ---
Author Organization [facility] Address [address] [place] [address] Care Team Providers Care Casino Cage Manager Name Role Phone Riri Hand PA-C Primary Care Provider + [phone] Source Comments You are receiving this document as you are listed as the primary care provider,follow-up provider, or the patient has been referred to you for consultation.This is in compliance with the Medicare and[facility] EHR Incentive Program,which states Providers who transition their patient to another setting of careor provider of care or refers their patient to another provider of care shouldprovide summary care record for each transition of care or referral. [employer] Allergies No known active allergies Medications Medication [...] 03/18/1995, 1,02/23/1990,1989 Influenza IIV4 (Quadrivalent ) 0.5mL (41605) 08/30/2019,10/19/2017,10/08/2015 MCV4 (Menactra) 07/21/2007 MMR 05/12/2002,01/26/1991 MPSV4 [...] Comments Blood Pressure 115/76 01/03/2020 2:06 PM WATER PROJECT MANAGER Pulse 69 01/03/2020 2:06 PM WATER PROJECT MANAGER Temperature 37.1 ??C (98.8 ??F) 05/03/2018 9:28 AM CD T Respiratory Rate 18 05/03/2018 9:28 AM CDT Oxygen Saturation 97% 05/03/2018 9:28 AM CDT Inhaled Oxygen Concentration - - Weight 97.1 kg (214 lb) 01/03/2020 2:06 PM WATER PROJECT MANAGER Height 171.5 cm (5' 7.5) 01/03/2020 2:06 PM WATER PROJECT MANAGER Body Mass Index 33.02 01/03/2020 2:06 PM WATER PROJECT MANAGER Plan of Treatment Health Maintenance Due [...] this topic Medical Devices Implanted Type Area Stem Dryer Maintainer Device Identifier Shelf Expiration Date Model / Serial / Lot K-Wire Nikki Pt .[id number] - [id number] Implanted:Qty: 1 on 07/18/2008 at [facility] DEVICE Left: HAND [employer] [id number] / / Procedures Procedure Name Priority Date/Time Associated Diagnosis Comments HIV 1/2 AG/AB 4TH GEN Routine 04/12/2019 12:04 PM CDT Screening examination for venereal disease ANATOMICAL PATH LIQUID BASED Routine 10/19/2017 12:20 PM WATER PROJECT MANAGER from Last 3 Months or Most Recently Relevant to Health Maintenance Results * HIV 1/2 Ag/Ab 4th Generation (04/12/2019 12:04 PM CDT) HIV 1/2 Antigen/Antib filiberto (4th generation) Negative (Non Reactive) Negative (Non Reactive) 04/12/2019 4:29 PM CDT [facility] Comment:HIV-1 p24 Antigen an d HIV-1/HIV-2 Antibody not detected Blood Venipuncture / Unknown 04/12/2019 12:04 PM CDT 04/12/2019 12:04 PM CDT Norma Patten APRN, INSTRUCTOR OF NURSING LAB_1 [facility] [address] [place], [place] [address] * Pap Smear (10/19/2017 12:20 PM WATER PROJECT MANAGER) 10/19/2017 12:2 0 PM WATER PROJECT MANAGER Narrative [facility] - 10/21/2017 6:40 AM WATER PROJECT MANAGER FINAL GYNECOLOGICAL CYTOLOGY REPORT Pathology #: [id number] ?Date Obtained: 10/19/2017 ? Date Received: 10/20/2017 [...] and false-negative reports may occur. Performed at [facility], [address] [place] [address] Riri Hand PA-C LAB_1 [facility] [address] [place] [address] from Last 3 Months or Most Recently Relevant to Health Maintenance Advance Directives * Full Code (Latest Code Status on File) Date Activated Date Inactivated Comments 07/16/2008 3:34 AM 07/19/2008 4:37 PM Care Teams Casino Cage Manager Relationship Specialty Start Date End Date Riri Hand PAYulietC [address] [place] [address] PCP - General Physician Commuter Pilot 10/12/17
--- OUTSIDE RECORDS SUMMARY | 2024-05-16 07:17 | XMS_ITS | Encounter Summary ---
Author Organization [facility] Address [address] [place] [address] Care Team Providers Care Life Coach Name Role Phone Riri Hand PA-C Primary Care Provider + [phone] Encounter Details Date Type Department Care Team [...] on filedocumented in this encounter Care Teams Life Coach Relationship Specialty Start Date End Date Riri Hand PA-C [address] [place] [address] PCP - General Physician Channel Rougher 10/12/17 documented as of this encounter
--- OUTSIDE RECORDS SUMMARY | 2024-05-16 07:17 | XMS_ITS | Encounter Summary ---
Author Organization [facility] Address [address], [place] [address] Care Team Providers Care Preparer Name Role Phone Riri Hand PA-C Primary Care Provider + [phone] Encounter Details Date Type Department Care Team (Late st Contact Info) Description 03/03/2017 Correspondence [facility] [address] [place] [address] Nicolas Jefferson MD [address] [place], [place] [id number] [place] DOC RESPIRATOR CLEARANCE Social History Tobacco Use [...] on filedocumented in this encounter Care Teams Preparer Relationship Specialty Start Date End Date Riri Hand PA-C [address] [place] [address] PCP - General Physician Barrel Cap Setter 10/12/17 documented as of this encounter
--- OUTSIDE RECORDS SUMMARY | 2024-05-16 07:17 | XMS_ITS | Encounter Summary ---
Author Organization [facility] Address [address] [place] [address] Care Team Providers Care Technology Instructor Name Role Phone Riri Hand PA-C Primary Care Provider + [phone] Encounter Details Date Type Department Care Team (Late st Contact Info) Description 02/26/2017 Correspondence External to External, [place] [address] [facility] CNRT PPD [place] TEST Social History [...] on filedocumented in this encounter Care Teams Technology Instructor Relationship Specialty Start Date End Date Riri Hand PA-C [address] [place] [address] PCP - General Physician Manager Mac 10/12/17 documented as of this encounter
--- OUTSIDE RECORDS SUMMARY | 2024-05-16 07:17 | XMS_ITS | Clinical Summary ---
Author Organization [facility] Address [place], [place] [address] Care Team Providers Care Net Developer Architect Name Role Phone Pcp, No Primary Care [...] Outcome GA Total Labor Labor/2nd/3rd Weight Sex Type Anes PTL Sweta A1 A5 Name Clin Current Last Filed Vital Signs Vital Sign [...] Procedure Name Priority Date/Time Associated Diagnosis Comments CAD DRAFTER THIN PREP PAP SCREEN IMAGED Routine 01/22/2021 10:45 AM CASTINGS DRAFTER from Last 3 Months or Most Recently Relevant to Health Maintenance Results * CAD DRAFTER THIN PREP PAP SCREEN IMAGED (01/22/2021 10:45 AM CASTINGS DRAFTER) Case Report Gynecologic Cytology Report ? Case: [id number] ? Authorizing Provider: ??Macy Pack CNM ? Collected: ? 01/22/2021 1045 ? Ordering Location: ? [facility] ?Received: ?01/23/2021 0907 ? First Screen: ?Donnell Corral ? Specimen: ?CAD DRAFTER ThinPrep Vial Screening, Cervical/Vaginal ? 01/30/2021 9:13 AM [facility] INTERPRETATION/ RESULT NEGATIVE FOR INTRAEPITHELIAL LESION OR MALIGNANCY (NIL) (none) 01/30/2021 9:13 AM [facility] IMEN ADEQUACY Satisfactory for evaluation Endocervical component present 01/30/2021 9:13 AM [facility] HPV REQUEST HPV and PAP 01/30/2021 9:13 AM [facility] Menstrual Status 01/30/2021 9:13 AM [facility] Additional Information 01/30/2021 9:13 AM [facility] Comment: Interpreted at [facility] - [address] [place] [address], [place] [address] Automated Review Successful 01/30/2021 9:13 AM [facility] Comment:Specimen processed s uccessfully by automated cco & president device, ThinPrep Imaging System, [employer] ANCILLARY TESTING CAD DRAFTER HPV Ordered, Please see separate report 01/30/2021 9:13 AM [facility] Note The pap test is a screening technique, not a diagnostic procedure. It is used primarily to screen for squamous cancers and precursor lesions. Published studies have shown that it is subject to both false negative and false positive results. The pap test should not be used as the sole means to diagnose or exclude pre-malignant and malignant lesions. 01/30/2021 9:13 AM [facility] Other (Cervical/Vagina l) 01/22/2021 10:45 AM CASTINGS DRAFTER 01/23/2021 9:07 AM CASTINGS DRAFTER Macy Pack CNM PATHOLOGY/CYT[facility]Y [facility] [address] [place] [address], [place] from Last 3 Months or Most Recently Relevant to Health Maintenance Care Teams Net Developer Architect Relationship Specialty Start Date End Date Pcp, No . PCP - General 07/11/21
--- OUTSIDE RECORDS SUMMARY | 2024-05-16 07:17 | XMS_ITS | Encounter Summary ---
Author Organization [facility] Address [address] [place] [address] Care Team Providers Care Freight Rate Clerk Name Role Phone Riri Hand PA-C Primary Care Provider + [phone] Encounter Details Date Type Department Care Team [...] on filedocumented in this encounter Care Teams Freight Rate Clerk Relationship Specialty Start Date End Date Riri Hand PA-C [address] [place] [address] PCP - General Physician Maori Physiotherapist 10/12/17 documented as of this encounter
--- OUTSIDE RECORDS SUMMARY | 2024-05-16 07:17 | XMS_ITS | Referral Summary ---
Author Organization [facility] Address [address] [facility] [place] [address] Care Team Providers Care Tubular Splitting Machine Tender Name Role Phone Clinic, Leslie Narvaez Addy Primary Care Pro vider Allergies No known [...] of Binge Drinking Not on file 10/31 [place] Depression Scale Answer Date Recorded [place] Depression Score 0 11/21/2019 Last EPDS Self [...] Comments Blood Pressure 105/64 11/22/2019 9:00 AM MACHINE GUN MECHANIC Pulse - - Temperature 36.4 ??C (97.5 ??F) 11/22/2019 9:00 AM CS T Respiratory Rate 16 11/22/2019 9:00 AM MACHINE GUN MECHANIC Oxygen Saturation 97% 11/20/2019 8:45 PM MACHINE GUN MECHANIC Inhaled Oxygen Concentration - - Weight 104.3 kg (230 lb) 11/20/2019 9:33 AM MACHINE GUN MECHANIC Height 170.2 cm (5' 7) 11/20/2019 9:33 AM MACHINE GUN MECHANIC Body Mass Index 36.02 11/20/2019 9:33 AM MACHINE GUN MECHANIC Plan of Treatment Not on file Procedures [...] Recently Relevant to Health Maintenance Care Teams Tubular Splitting Machine Tender Relationship Specialty Start Date End Date [facility] [address] [place] [address] PCP - General 11/22/19
--- OUTSIDE RECORDS SUMMARY | 2024-05-16 07:17 | XMS_ITS | Encounter Summary ---
Author Organization [employer] Address [address], [place] [address] Care Team Providers Care Gas Compressor Operator Name Role Phone Riri Hand PA-C Primary Care Provider + [phone] Encounter Details Date Type Department Care Team (Latest Contact Info) Description 03/03/2017 Correspondence [facility] [address] [place] [address] Nicolas Jefferson MD [address] [place] [address] [place] PRE PLACEMENT QUESTIONNAIRE Social History [...] on filedocumented in this encounter Care Teams Gas Compressor Operator Relationship Specialty Start Date End Date Riri Hand PA-C [address] [place] [address] PCP - General Physician Loan Associate 10/12/17 documented as of this encounter
--- OUTSIDE RECORDS SUMMARY | 2024-05-16 07:17 | XMS_ITS | Encounter Summary ---
Author Organization [employer] Address [address], [place] [address] Care Team Providers Care President Educational Institution Name Role Phone Riri Hand PA-C Primary Care Provider + [phone] Encounter Details Date Type Department Care Team (Latest Contact Info) Description 03/03/2017 Correspondence [facility] [address] [place] [address] Nicolas Jefferson MD [address] [place] [address] [place] PRE PLACEMENT QUESTIONNAIRE [...] on filedocumented in this encounter Care Teams President Educational Institution Relationship Specialty Start Date End Date Riri Hand PA-C [address] [place] [address] PCP - General Physician Director Of Early Childhood 10/12/17 documented as of this encounter
--- OUTSIDE RECORDS SUMMARY | 2024-05-16 07:17 | XMS_ITS | Clinical Summary ---
Author Organization [place] Address [address] [facility] [place] [address] Care Team Providers Care Ceramist Name Role Phone [facility], [facility] Pro vider Allergies No known [...] of Binge Drinking Not on file 10/31 Olpe Depression Scale Answer Date Recorded [place]pe Depression Score 0 11/21/2019 Last EPDS Self [...] Comments Blood Pressure 105/64 11/22/2019 9:00 AM FHA UNDERWRITER Pulse - - Temperature 36.4 ??C (97.5 ??F) 11/22/2019 9:00 AM CS T Respiratory Rate 16 11/22/2019 9:00 AM FHA UNDERWRITER Oxygen Saturation 97% 11/20/2019 8:45 PM FHA UNDERWRITER Inhaled Oxygen Concentration - - Weight 104.3 kg (230 lb) 11/20/2019 9:33 AM FHA UNDERWRITER Height 170.2 cm (5' 7) 11/20/2019 9:33 AM FHA UNDERWRITER Body Mass Index 36.02 11/20/2019 9:33 AM FHA UNDERWRITER Plan of Treatment Health Maintenance Due Date [...] Recently Relevant to Health Maintenance Care Teams Ceramist Relationship Specialty Start Date End Date Clinic, [facility] [address] [place] [address] PCP - General 11/22/19
--- OUTSIDE RECORDS SUMMARY | 2024-05-16 07:17 | XMS_ITS | Encounter Summary ---
Author Organization [place] Address [address] [address] Care Team Providers Care Basket Mender Name Role Phone Riri Hand PA-C Primary Care Provider + [phone] Encounter Details Date Type Department Care Team (Late st Contact Info) Description 03/03/2017 Correspondence [facility] [address] [place] [address] Nicolas Jefferson MD [address] [place], [place] [id number] [place] [employer] OF [employer] DRUG SCREEN RELEASE Social [...] on filedocumented in this encounter Care Teams Basket Mender Relationship Specialty Start Date End Date Riri Hand PA-C [address] [place] [address] PCP - General Physician Properties Supervisor 10/12/17 documented as of this encounter
--- OUTSIDE RECORDS SUMMARY | 2024-05-16 07:17 | XMS_ITS | Encounter Summary ---
Author Organization [place] Address [address] [address] Care Team Providers Care Urban And Regional Planner Name Role Phone Riri Hand PA-C Primary Care Provider + [phone] Encounter Details Date Type Department Care Team (Latest Contact Info) Description 03/03/2017 Correspondence [place] [facility] [address] [place] [address] Nicolas Jefferson MD [address] [place] [address] SPIROMETRY PRE SCREEN QUESTIONNAIRE Social [...] on filedocumented in this encounter Care Teams Urban And Regional Planner Relationship Specialty Start Date End Date Riri Hand PA-C [address] [place] [address] PCP - General Physician Health Science Instructor 10/12/17 documented as of this encounter
--- NOTE | 2024-05-16 07:50 | W.PM.LDBA ---
Subjective History of Present Illness Time Seen by Provider: 07:50 Date Seen: 05/16/24 Narrative: Patient is being admitted to Labor and Delivery for elective IOL. She is a 33 year old at weeks gestation. Her full history and physical was dictated by Cherie Nolasco CNM on 04/26/24. Please see this for details. Concern(s) this visit: None. She is ready for her IOL. Active movement. Denies LOF, vaginal bleeding or abnormal vaginal discharge. Intermittent contractions that are not painful to her. Specific Issues/Plans G 3 P 2001 H&P 04/26/24 by Antwan Nolasco CNM Elective IOL at 39 weeks requested for 05/13/2024, 8am due to childcare # History of depression. Recently discontinued bupropion and sertraline. Doing well currently. Would prefer to wait to see how she does PP to see if she needs them. # BMI 31.4. Hemoglobin A1c:4.9 # Youngest child is deaf. Was told this was a fluke occurrence, but he does have a genetic mutation. Declines genetic counseling. States that hearing loss could have been related to CMV as an . # Rubella non-immune. Rec. PP vaccine. # History of rapid labor. Arrived at hospital completely dilated. # 1 hour GTT: 146 3 hour GTT: all normal - 83, 135, 137, 119 (outside lab, sent to scanning) # A- 28-weeks: received PP: Level 2 US 01/11/24: Anterior placenta without previa, three-vessel cord, normal fluid, EFW 97%, AC 89%, normal anatomy. Bright area in spot not bright enough to qualify for echogenic intracardiac focus. [id number] PLUS: negative Flu: Plans to obtain with her children Covid: Not vaccinated. Declines. Reviewed risks of COVID infection in . Encouraged. Tdap: 03/15/24 OB - Problem Based A/P Additional Plan (1) : Status: Acute (2) Anxiety and depression: Problem details: after both deliveries. Status: Acute Plan - Will start titrating pitocin for labor induction - Pain management plan: will eventually want an epidural OB Exam Physical Exam Vital signs: Pulse BP 100 110/70 05/16/24 07:33 05/16/24 07:33 Narrative: Physical exam: General: No acute distress Psych: Alert and oriented x3, full affect HEENT: Normocephalic, atraumatic Lungs: Unlabored breathing Neuro: No focal deficit. Mentating appropriately Pelvic exam: /-2 per RN exam.
[2024-05-16] MEDS: LACTATED RINGERS 1000 ML 1,000 ML 125 ML IV (08:23)
[2024-05-16] MEDS: OXYTOCIN 30 unit/500 ML in NS 30 UNIT/500 ML BAG IVPB (08:24)
[2024-05-16 08:37] LABS: Basophils Absolute Auto 0.02 K/uL (0.00-0.30); Basophils Percent Auto 0.2 % (0.0-3.0); Eosinophils Absolute Auto 0.07 K/uL (0.00-0.50); Eosinophils Percent Auto 0.7 % (0.0-7.0); Hematocrit 38.8 % (33.0-51.0); Hemoglobin* 13.3 gm/dL (12.0-16.0); Immature Granulocytes Abs Auto 0.09 K/uL (0.00-0.30); Immature Granulocytes Pct Auto 0.8 %; Lymphocytes Percent Auto 16.6 % (20-44); Mean Corpuscular HGB Conc 34 gm/dL (32-36); Mean Corpuscular Hemoglobin 31 pg (26-34); Mean Corpuscular Volume 89 fL (80-100); Monocytes Percent Auto 4.4 % (0.0-11.0); Neutrophils Percent Auto 77.3 % (42.0-72.0); Platelet Count* 233 K/uL (140-440); RDW Coefficient of Variation % 13.6 % (11.5-15.5); Red Blood Count 4.35 m/uL (4.00-5.20); White Blood Count* 10.75 K/uL (4.50-11.00)
[2024-05-16 08:41] LABS: Slide Review Reflex No
[2024-05-16] MEDS: LACTATED RINGERS 1000 ML 1,000 ML 925 ML IV (13:08)
[2024-05-16] MEDS: LIDOCAINE 2% (PF) 5 ML VIAL EPIDURAL (13:10)
[2024-05-16] MEDS: ROPIVACAINE 0.2% 100 ml 100 ML 12 MG EPIDURAL (13:14)
--- NOTE | 2024-05-16 13:37 | P.ANBPRC_ITS ---
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[employer], nonsmoker What is your current living situation?: I presently have a place to live Problems where you live: no known problems In the past 12 months, utilities in danger of being shut off: no In past 12 months, lack of transportation kept you from medical appts, meetings, work, or getting things needed for daily living: no In the past 12 mos, have been you worried that your food would run out before you had money to buy more?: never true In the past 12 mos, the food you bought just didn't last and you didn't have money to buy more?: never true Smoking Status: Never smoker How often does anyone, including family, friends and others, physically hurt you : unable to answer How often does anyone, including family, friends and others, insult or talk down to you: unable to answer How often does anyone, including family, friends and others, threaten you with harm: unable to answer How often does anyone, including family, friends and others, scream or curse at you: unable to answer Little interest or pleasure in doing things: not at all Feeling down, depressed, or hopeless: not at all Meds Home Medications and Allergies Home Medications ?Medication ?Instructions ?Recorded ?Confirmed ?Type docosahexaenoic acid 200 mg mg PO 11/10/23 05/10/24 History capsule ( DHA) Allergies Allergy/AdvReac Type Severity Reaction Status Date / Time No Known Drug Allergies Allergy Verified 05/10/24 18:38 Results Labs Labs: Laboratory Results - last 24 hr 05/16/24 08:10 WBC 10.75 RBC 4.35 Hgb 13.3 Hct 38.8 MCV 89 MCH 31 MCHC 34 RDW Coeff of Raymundo 13.6 Plt Count 233 Neut % (Auto) 77.3 H Lymph % (Auto) 16.6 L [place] % (Auto) 4.4 Eos % (Auto) 0.7 Baso % (Auto) 0.2 Neut # (Auto) 8.30 H Lymph # (Auto) 1.80 [place] # (Auto) 0.50 Eos # (Auto) 0.07 Baso # (Auto) 0.02 Abs Immat Gran (auto) 0.09 Imm/Tot Granulo (auto) 0.8 Blood Type A Negative Antibody Screen NEGATIVE Vital Signs Vital Signs: Last Vital Signs Temp 97.6 F 05/16/24 10:46 Pulse 82 05/16/24 13:34 BP 125/65 05/16/24 13:34 Pulse Ox 99 05/16/24 13:33 Weight: 107.002 kg Height: 170.18 cm Anesthesia Procedures Epidural Insertion Patient Location: OB Reason for Block: procedure for pain Patient Position: sitting Performed By: aMyra Tinajero Preanesthetic Checklist: IV checked, risks and benefits discussed, monitors and equipment checked, pre-op evaluation, timeout performed and anesthesia consent Prep: chlorhexidine gluconate Monitoring: blood pressure monitoring, continuous pulse oximetry and heart rate Approach: midline Vertebral Space: lumbar (1-5) Epidural Technique: MARQUISE saline Needle Type: Tuohy needle Injection Technique: continuous catheter (continuous catheter) Needle gauge: 17 Needle Length (cm): 10 cm Needle Insertion Depth (cm): 7 Catheter Gauge: 19 Catheter Type: multi-orifice Catheter at skin depth (cm): 15 Test Dose Result: negative and lidocaine 1.5% with epinephrine 1 to 200,000
[2024-05-16] MEDS: OXYTOCIN 30 unit/500 ML in NS 30 UNIT/500 ML BAG 300 UNIT IVPB (13:55)
--- NOTE | 2024-05-16 16:02 | W.PM.VAGD1_ITS ---
Procedure Procedure Done: [facility] Procedure Details: The patient is a 33 year-old G3 P 2001 admitted on 05/16/24 at 39 and 5/7 weeks gestation for elective induction of labor. Cervical exam on admission was 4 cm/50 % effaced/-2 station with membranes intact in vertex presentation. GBS negative. AROM occurred at 1209 on 05/16 with clear fluid. Labor Analgesia: Epidural Pitocin: Yes Labor onset: 05/16/24 at 1215 Complete: 05/16/24 at 1348 Pushin05/16/24 at 1353 heart tones during second stage were At 1355 a viable female delivered in vertex OA presentation over perineum via spontanesou vaginal delivery. was placed on maternal abdomen. Cord was clamped and cut after a 30-60 second delay. Nose and mouth were bulb suctioned. Infant weight: pending. 8 at 1 minute and 9 at 5 minutes. Shoulder dystocia: No. Nuchal cord: Yes x 1, loose and reduced. Placenta delivered spontaneously and complete at 1359 with a 3 vessel cord. Complications: None. Mother and infant were stable after delivery. Laceration(s): 1st degree, repaired with vicryl. Estimated blood loss: 50 mL. Sponge and needles counts are correct. Mother and were stable at the time of this note. Events: Labor Induction Intrapartal Events: Labor Induction Delivery augmentation: rupture of membranes and pitocin Delivery monitor: external FHT Route of delivery: Laceration description: Perineal - 1st Degree Delivery repair: Vicryl Estimated blood loss (mL): 50 Anesthesia type: Epidural Disposition: floor [place] Infant Infant Gender: Female presentation: vertex Placental Delivery Description: Spontaneous Cord Description: 3 Vessels
[2024-05-16] MEDS: ACETAMINOPHEN 500 MG TABLET 1000 MG PO (17:29)
[2024-05-16] MEDS: IBUPROFEN 600 MG TABLET PO (23:02)
[2024-05-17 03:29] VITALS: BP 106/62; PULSE 66; RESP 16; TEMP 36.6; O2SAT 98
[2024-05-17 06:37] LABS: Hemoglobin* 12.4 gm/dL (12.0-16.0)
--- NOTE | 2024-05-17 08:14 | PM.ANPOST ---
Post Anesthesia Note Post Anesthesia Note Patient seen: Inpatient Respiratory Status: adequate Cardiovascular Status: adequate Mental Status: baseline Pain: adequate Temp: baseline Anesthetic awareness: N/A Complications: none Follow care: none
[2024-05-17] MEDS: IBUPROFEN 600 MG TABLET PO (08:20)
[2024-05-17] MEDS: DOCUSATE SODIUM 100 MG CAPSULE PO (08:20)
[2024-05-17 08:30] VITALS: BP 119/84; PULSE 75; RESP 16; TEMP 36.9; O2SAT 98
--- NOTE | 2024-05-17 09:02 | P.DS_ITS ---
DS: Providers Provider Date Seen: 05/17/24 Date of admission: 05/16/24 07:14 Primary care physician: Radhames Santa MD Admitting Clinician: Mindy Chavarria MD Attending Physician on discharge: Alicia Rocha CNM Date of Discharge: 05/17/24 DS: Diagnosis Discharge Diagnosis (1) care and examination immediately after delivery: Status: Acute (2) Lactating mother: Status: Acute Exam Narrative: Exam Narrative: VSS, afebrile GENERAL APPEARANCE: ?normal affect, alert, no distress MOOD: ?appropriate HEENT: normocephalic, neck supple, full ROM CHEST: ?Symmetrical chest wall movement. ?Normal respiratory effort. ?Clear to auscultation HEART: ?regular rate and rhythm ABDOMEN: ?soft, non-tender. Uterine fundus is firm, at Umbilicus, Midline and is appropriate for the stage of recovery. ?Bowel sounds present. PERINEUM: ?mild edema of the perineum, there is a 1st degree laceration that is healing well. EXTREMITIES: ?normal and no edema Const: Vital Signs, click to edit/add: Vital Signs - 24 hr 05/16/24 10:46 05/16/24 10:46 05/16/24 12:48 Temperature 97.6 F Pulse Rate 91 Pulse Rate [Right Radial] Respiratory Rate Blood Pressure 111/70 Blood Pressure [Le ft Arm] Pulse Oximetry [facility] 05[facility] 12:53 05/16/24 12:53 05/16/24 12:58 Temperature Pulse Rate Pulse Rate [Right Radial] Respiratory Rate Blood Pressure Blood Pressure [Le ft Arm] Pulse Oximetry 100 91 [facility] 05/16/24 13:03 05/16/24 13:04 05/16/24 13:06 Temperature Pulse Rate 86 91 86 Pulse Rate [Right Radial] Respiratory Rate Blood Pressure 135/79 124/75 125/72 Blood Pressure [Le ft Arm] Pulse Oximetry 100 Oxygen Delivery Ia thod 05/16/24 13:08 05/16/24 13:13 05/16/24 13:16 Temperature Pulse Rate 89 86 87 Pulse Rate [Right Radial] Respiratory Rate Blood Pressure 126/89 141/82 H 138/79 Blood Pressure [Le ft Arm] Pulse Oximetry [facility] 05/16/24 13:18 05/16/24 13:23 05/16/24 13:28 Temperature Pulse Rate 111 H Pulse Rate [Right Radial] Respiratory Rate Blood Pressure 160/97 H Blood Pressure [Le ft Arm] Pulse Oximetry 100 100 [facility] 05/16/24 13:29 05/16/24 13:33 05/16/24 13:34 Temperature Pulse Rate 85 82 Pulse Rate [Right Radial] Respiratory Rate Blood Pressure 122/75 125/65 Blood Pressure [Le ft Arm] Pulse Oximetry [facility] 05/16/24 13:38 05/16/24 13:39 05/16/24 13:43 Temperature Pulse Rate 83 Pulse Rate [Right Radial] Respiratory Rate Blood Pressure 122/64 Blood Pressure [Le ft Arm] Pulse Oximetry 99 [address] [facility] 05/16/24 13:48 05/16/24 13:53 05/16/24 13:55 Temperature Pulse Rate 88 Pulse Rate [Right Radial] Respiratory Rate Blood Pressure 120/87 Blood Pressure [Le ft Arm] Pulse Oximetry 98 [address] [facility] 05/16/24 13:58 05/16/24 13:59 05/16/24 14:19 Temperature Pulse Rate 85 78 Pulse Rate [Right Radial] Respiratory Rate Blood Pressure 106/61 106/64 Blood Pressure [Le ft Arm] Pulse Oximetry [address] [facility] 05/16/24 14:31 05/16/24 14:34 05/16/24 14:49 Temperature 97.6 F Pulse Rate 75 75 Pulse Rate [Right Radial] Respiratory Rate Blood Pressure 111/67 105/61 Blood Pressure [Le ft Arm] Pulse Oximetry [address] [facility] 05/16/24 15:01 05/16/24 15:04 05/16/24 15:15 Temperature 97.6 F 97.6 F Pulse Rate 73 Pulse Rate [Right Radial] Respiratory Rate Blood Pressure 108/62 Blood Pressure [Le ft Arm] Pulse Oximetry 100 [address] [facility] 05/16/24 15:19 05/16/24 15:30 05/16/24 15:34 Temperature 97.6 F Pulse Rate 71 67 Pulse Rate [Right Radial] Respiratory Rate Blood Pressure 105/63 106/62 Blood Pressure [Le ft Arm] Pulse Oximetry [address] [facility] 05/16/24 15:45 05/16/24 15:49 05/16/24 16:00 Temperature 97.6 F 97.6 F Pulse Rate 73 Pulse Rate [Right Radial] Respiratory Rate Blood Pressure 113/69 Blood Pressure [Le ft Arm] Pulse Oximetry 100 100 Oxygen Delivery Me thod 05/16/24 16:04 05/16/24 16:19 05/16/24 20:30 Temperature 97.7 F Pulse Rate 72 86 Pulse Rate [Right Radial] 85 Respiratory Rate 16 Blood Pressure 117/74 122/79 Blood Pressure [Le ft Arm] 105/68 Pulse Oximetry 98 Oxygen Delivery Me thod Room Air 05/16/24 23:02 05/16/24 23:20 05/17/24 03:29 Temperature 98.1 F 98.1 F 97.8 F Pulse Rate Pulse Rate [Right Radial] 88 66 Respiratory Rate 16 16 Blood Pressure Blood Pressure [Le ft Arm] 116/77 106/62 Pulse Oximetry 98 98 Oxygen Delivery Me thod Room Air Room Air Documenting provider has reviewed patient's vital signs: yes OB - DS: Summary Hospital Course Hospital Course: Marbella is a 33 y.o. who was admitted to L & D for elective induction of labor. ?She had an uncomplicated NVD.?The patient feels well. ?The pain is well controlled with current medications. ?She has no new complaints. ?She is breast feeding and pumping and reports things are going well.? the patient has done well.? Vitals have been stable.? She has remained afebrile.? Has a good appetite, is tolerating a general diet. ?She is voiding without difficulty.? She is passing gas and has not had a bowel movement.? She is ambulating and denies any dizziness.? Has Small amount of rubra lochia. ?She is planning nothing for prevention, partner had a vasectomy Peripartum Data Infant delivery method: Vaginal Laceration description: Perineal - 1st Degree complications: none [place] Infant Gender: Female Discharge Plan: Home Status at Discharge Functional status at discharge: independent ambulation Overall status at discharge: patient is progressing back to baseline Time Spent with Patient Time attestation: Total time spent providing and/or coordinating discharge services: Time spent: Less than 30 minutes Discharge Plan Discharge Disposition: Home, Self-Care Date of Admission: 05/16/24 07:14 Attending Provider on Discharge: Alicia Rocha Primary Care Provider: Radhames Santa Condition: Stable Anticipated Discharge Date/Time: 05/17/24 12:00 Discharge Medications: New acetaminophen 500 mg Tablet 1,000 mg PO Q6H PRN (Reason: pain/fever) Qty: 0 0RF docusate sodium 100 mg Capsule 100 mg PO DAILY Qty: 90 2RF ibuprofen 600 mg Tablet 600 mg PO Q6H PRNQty: 60 0RF Continued DHA 200 mg capsule PO Discontinued ondansetron HCl 4 mg tablet 4 mg PO Q8-12H PRN (Reason: nausea and vomiting) Qty: 10 0RF Discharge Orders: Discharge Order (Routine); Ordered 05/17/24 Ordered By: Alicia Rocha Patient Education: OB Over the Counter Medication Information, OB Vaginal/Breast Feeding Activity Level: Activity as Tolerated Discharge Diet: Regular Follow Up Appointments: Radhames Santa MD [Primary Care Provider] - [facility] [Provider Group] [facility] Inst[facility]
[2024-05-17 18:34] LABS: Rapid Plasma Reagin (RPR) Non Reactive (Non Reactive)
== END 2024-05-17 15:24 | disposition home or self-care (01) | DRG 560 ==
PROVIDERS: Admitting Provider Obstetrics & Gynecology; PCP Family Medicine; Visit Provider Obstetrics & Gynecology
DX: O70.0 First degree perineal laceration during delivery (principal); O99.344 Other mental disorders complicating childbirth; F32.A Depression, unspecified; Z3A.39 39 weeks gestation of pregnancy; Z37.0 Single live birth; O26.893 Other specified pregnancy related conditions, third trimester; Z67.11 Type A blood, Rh negative; E66.09 Other obesity due to excess calories; Z68.36 Body mass index [BMI] 36.0-36.9, adult
CPT/HCPCS: 01967; 36415; 85018; 85025; 86592; 86850; 86900; 86901; A9270; J2795; J7120

== ENCOUNTER 2025-03-31 09:39 | Outpatient (CLI) | payer BC, SELFPAY | END 2025-03-31 09:40 | disposition home or self-care (01) | PROVIDERS: PCP Family Medicine; Visit Provider Family Medicine | DX: E78.2 Mixed hyperlipidemia (principal); E66.09 Other obesity due to excess calories | CPT/HCPCS: 80048; 80061 ==